=== PATIENT | female | born 1945 | race Asian ===

== ENCOUNTER 2018-11-29 14:32 | Emergency (ER) | payer OTHER, SELFPAY ==
[~2018-11-29] VITALS: Ht 147.3 cm; Wt 56.7 kg
[~2018-11-29 14:32] MED LIST: ALBUTEROL2.5 MG/0.5 INH; ALPRAZOLAM1 M1 PO; AMBIEN 10 MG TA10 MG PO; AMBIEN 5 MG TABL5 M1 PO; ASPIRIN EC81 M1 PO; DIFLUCAN150 MG PO; DOXYCYCLINE 10100 MG PO; DYAZIDE 37.5-21 EACH PO; FLONASE 0.05%50 MCG NASAL; FLONASE ALLERG9.9 ML NASAL; HYDROCODON-ACE1 EAC7 PO; IMDUR 30 MG TAB30 M1; KLOR-CON 1010 MEQ; MOBIC7.5 M1 PO; NEXIUM 40 MG CA40 M1 PO; NITROGLYCERIN0.4 MG SL; OMEPRAZOLE40 MG; PRAVACHOL40 MG; PREDNISONE 10 M10 M1 PO; PREMARIN0.625 MG PO; SERTRALINE HCL25 M2; TRICOR145 MG PO; ULTRAM 50MG TAB50 MG PO; VENTOLIN HFA 1818 GM; XANAX XR1 MG
[2018-11-29 15:16] LABS: ABSOLUTE BASOPHILS 0.1 thou/uL (0.0-0.2); ABSOLUTE EOSINOPHILS 0.2 thou/uL (0.0-0.7); ABSOLUTE LYMPHOCYTES 2.1 thou/uL (0.8-5.3); ABSOLUTE MONOCYTES 0.9 thou/uL (0.0-1.2); ABSOLUTE NEUTROPHILS 4.6 thou/uL (1.6-8.1); BASOPHILS 0.8 %; EOSINOPHILS 2.8 %; HEMATOCRIT 36.6 % (37.0-47.0); HEMOGLOBIN 12.7 gm/dL (12.0-15.0); LYMPHOCYTES 26.7 %; MCH 31.4 pg (26.0-34.0); MCHC 34.7 g/dL (28.0-37.0); MCV 90.3 fL (80.0-100.0); MONOCYTES 11.2 %; MPV 8.4 fl. (7.2-11.1); NUCLEATED RBCS 0 /100WBC; PLATELET COUNT* 237 thou/uL (150-400); POLYS 58.5 %; RBC 4.06 mil/uL (4.20-5.00); RDW-CV 13.8 % (10.5-14.5); WBC 7.9 thou/uL (4.0-11.0)
[2018-11-29 15:29] LABS: CALCIUM 8.7 mg/dL (8.5-10.1); CREATININE 0.9 mg/dL (0.6-1.3); POTASSIUM 3.6 mmol/L (3.5-5.1); TOTAL BILIRUBIN 0.3 mg/dL (<0.1-1.0); TOTAL PROTEIN 7.4 g/dL (6.4-8.2)
[2018-11-29 17:27] VITALS: BP 180/66
== END 2018-11-29 17:28 | disposition home or self-care (01) ==
LOC: M.ERS 14:32
PROVIDERS: Nurse Practitioner Family
DX: R42 Dizziness and giddiness (principal); T42.6X5A Adverse effect of other antiepileptic and sedative-hypnotic drugs, initial encounter; J45.909 Unspecified asthma, uncomplicated; E78.5 Hyperlipidemia, unspecified; M48.00 Spinal stenosis, site unspecified; F41.9 Anxiety disorder, unspecified; I10 Essential (primary) hypertension; G47.00 Insomnia, unspecified; K76.0 Fatty (change of) liver, not elsewhere classified; K21.9 Gastro-esophageal reflux disease without esophagitis; Z88.5 Allergy status to narcotic agent; Z88.1 Allergy status to other antibiotic agents; Z88.4 Allergy status to anesthetic agent; Z88.8 Allergy status to other drugs, medicaments and biological substances; Z88.2 Allergy status to sulfonamides; Y92.89 Other specified places as the place of occurrence of the external cause

== ENCOUNTER 2019-02-04 07:31 | Inpatient (IN) | payer OTHER, MEDICAID ==
[~2019-02-04] VITALS: Ht 147.3 cm; Wt 59.4 kg
[2019-02-04 07:36] VITALS: BP 214/105
[2019-02-04] MEDS ORDERED: LISINOPRIL20 MG PO (07:41)
[2019-02-04] MEDS ORDERED: XANAX 0.5 MG0.5 MG PO (07:42)
[2019-02-04] MEDS ORDERED: ATORVASTATIN CA40 MG PO (07:42)
[2019-02-04] MEDS ORDERED: INDERAL LA60 MG PO (07:42)
[2019-02-04] MEDS ORDERED: ESTRADIOL 1 MG T1 M1 (07:43)
[2019-02-04 08:59] LABS: ABSOLUTE LYMPHOCYTES 1.2 thou/uL (0.8-5.3); ABSOLUTE MONOCYTES 0.2 thou/uL (0.0-1.2); ABSOLUTE NEUTROPHILS 6.7 thou/uL (1.6-8.1); BASOPHILS 0.5 %; EOSINOPHILS 0.4 %; HEMATOCRIT 42.8 % (37.0-47.0); HEMOGLOBIN 14.4 gm/dL (12.0-15.0); LYMPHOCYTES 14.7 %; MCH 31.7 pg (26.0-34.0); MCHC 33.6 g/dL (28.0-37.0); MCV 94.4 fL (80.0-100.0); MONOCYTES 2.8 %; MPV 8.4 fl. (7.2-11.1); NUCLEATED RBCS 0 /100WBC; PLATELET COUNT* 303 thou/uL (150-400); POLYS 81.6 %; RBC 4.53 mil/uL (4.20-5.00); WBC 8.2 thou/uL (4.0-11.0)
[2019-02-04 09:13] LABS: ALBUMIN 4.2 g/dL (3.4-5.0); ALKALINE PHOSPHATASE 141 U/L (46-116); ANION GAP 9 mmol/L (7-16); BUN 12 mg/dL (7-18); CALCIUM 9.3 mg/dL (8.5-10.1); CHLORIDE 104 mmol/L (98-107); CO2 29 mmol/L (21-32); CREATININE 0.7 mg/dL (0.6-1.3); GLUCOSE 122 mg/dL (70-99); POTASSIUM 4.1 mmol/L (3.5-5.1); SGOT 25 U/L (15-37); SGPT 45 U/L (30-65); SODIUM 142 mmol/L (136-145); TOTAL BILIRUBIN 0.9 mg/dL (<0.1-1.0); TOTAL PROTEIN 8.4 g/dL (6.4-8.2); TROPONIN-I LEVEL <0.06 ng/mL (<0.06)
[2019-02-04 12:07] LABS: NT-PRO BRAIN NAT PEPTIDE 1161 pg/mL (<300); TROPONIN-I LEVEL <0.06 ng/mL (<0.06)
[2019-02-04 12:24] VITALS: BP 179/80
[2019-02-04 13:00] VITALS: BP 184/51
[2019-02-04 14:37] LABS: INR 0.9; PROTIME 9.7 Seconds (9.20-11.50)
[2019-02-04 15:23] VITALS: BP 187/61
[2019-02-04 15:36] LABS: ALBUMIN 3.9 g/dL (3.4-5.0); CALCIUM 9.2 mg/dL (8.5-10.1); CREATININE 0.7 mg/dL (0.6-1.3); POTASSIUM 3.8 mmol/L (3.5-5.1); TOTAL BILIRUBIN 0.8 mg/dL (<0.1-1.0); TOTAL PROTEIN 7.9 g/dL (6.4-8.2)
--- NOTE | 2019-02-04 17:09 | 2DMMODE ---
[place] [address] 2 D/M-MODE ECHOCARDIOGRAM Name: EUGENIO TOVAR Room: [address] IN [facility]#: [id number] Admission: 02/04/19 Attend Phys: Georges Brand, Discharge: Date of : 45 Date of Service: 02/04/19 1709 Report #: [id number] THIS REPORT FOR: //name// APPROVED REPORT Study performed: 02/04/2019 16:19:16 EXAM: Comprehensive 2D, Doppler, and color-flow Echocardiogram Patient Location: In-Patient Room #: [facility] Status: routine BSA: 1.43 HR: 80 bpm BP: 184/51 mmHg Rhythm: NSR Other Information Study Quality: Adequate Indications Dyspnea Pleural Effusion 2D Dimensions IVSd: 13.95 (7-11mm) LVOT Diam: 18.81 (18-24mm) LVDd: 35.20 mm PWd: 12.14 (7-11mm) Ascending Ao: 29.78 (22-36mm) LVDs: 19.01 (25-40mm) Aortic Root: 24.84 mm Volumes Left Atrial Volume (Systole) LA ESV Index: 41.30 mL/m2 Aortic Valve AoV Peak Imtiaz.: 1.38 m/s AO Peak Gr.: 7.63 mmHg LVOT Max P.26 mmHg AO Mean Gr.: 4.01 mmHg LVOT Mean P.25 mmHg LVOT Max V: 1.03 m/s AO V2 VTI: 26.77 cm LVOT Mean V: 0.70 m/s CM (VTI): 2.25 cm2 LVOT V1 VTI: 21.63 cm Mitral Valve MV Mean Gr.: 3.48 mmHg E/A Ratio: 1.03 MV Decel. Time: 215.01 [place] [address] 2 D/M-MODE ECHOCARDIOGRAM Name: EUGENIO TOVAR Room: [address] IN ..#: [id number] Admission: 02/04/19 Attend Phys: Georges Brand, Discharge: Date of : 45 Date of Service: 02/04/19 1709 Report #: [id number] MV E Max Imtiaz.: 1.23 m/s MV PHT: 62.35 ms MVA (PHT): 3.53 cm2 TDI E/Lateral E': 17.57 E/Medial E': 20.50 Medial E' Imtiaz.: 0.06 m/s Lateral E' Imtiaz.: 0.07 m/s Pulmonary Valve PV Peak Imtiaz.: 0.89 m/s PV Peak Gr.: 3.16 mmHg Left Ventricle The left ventricle is normal size. There is normal LV segmental wall motion. Mild concentric left ventricular hypertrophy. Left ventricular systolic function is normal. The left ventricular ejection fraction is within the normal range. LVEF is 60-65%. The left ventricular diastolic function is normal. Right Ventricle The right ventricle is normal size. The right ventricular systolic function is normal. Atria Left atrium is mild to moderately dilated. The right atrium size is normal. Aortic Valve The aortic valve is normal in structure. Trace aortic regurgitation. There is no aortic valvular stenosis. Mitral Valve Moderate mitral annular calcification. Trace mitral regurgitation. Mild mitral stenosis. Tricuspid Valve The tricuspid valve is normal in structure. Unable to assess PA pressure. Trace tricuspid regurgitation. Pulmonic Valve The pulmonary valve is normal in structure. There is no pulmonic valvular regurgitation. Great Vessels The aortic root is normal in size. IVC is normal in size and collapses >50% [place] [address] 2 D/M-MODE ECHOCARDIOGRAM Name: EUGENIO TOVAR Room: [address] IN [facility]#: [id number] Admission: 02/04/19 Attend Phys: Georges Brand, Discharge: Date of : 45 Date of Service: 02/04/19 1709 Report #: [id number] Pericardium There is no pericardial effusion. <Conclusion> Mild concentric left ventricular hypertrophy. LVEF is 60-65%. Left atrium is mild to moderately dilated. <ELECTRONICALLY SIGNED> By: Dino Weber MD, FACC 02/04/191708 08 08 Dino Weber MD, FACC /INF
[2019-02-04 17:38] LABS: BF RBC 1159 /mm3; TOTAL CELL COUNT 244 /mm3
[2019-02-04 17:39] LABS: CLARITY SLIGHTLY HAZY; TOTAL VOLUME 520 ml
[2019-02-04 17:40] LABS: SOURCE THORACENTESIS
[2019-02-04 17:45] VITALS: BP 163/71
--- NOTE | 2019-02-04 18:15 | NUR ---
PT TO UNIT THIS AFTERNOON. ALERT, ORIENTED AND ALL VSS ON ROOM AIR. DENIES CP, SOA. RIGHT THORA SITE CDI. EDUCATED ON SAFETY AND PLAN OF CARE. PLEASE SEE ASSESSMENT FOR ADDITIONAL INFORMATION. WILL CONT TO MONITOR
[2019-02-04 18:22] LABS: BF LYMPHOCYTES 59 %; BF MONOCYTES 31 %; BF POLYS 7 %; BF TISSUE 64 /100 WBC; BODY FLUID BANDS 3 %
[2019-02-04 19:30] VITALS: BP 144/57
[2019-02-05] VITALS (7 sets, daily range): BP systolic 124–157; BP diastolic 53–72
[2019-02-05 05:20] LABS: HEMATOCRIT 39.2 % (37.0-47.0); HEMOGLOBIN 13.2 gm/dL (12.0-15.0); MCH 31.5 pg (26.0-34.0); MCHC 33.7 g/dL (28.0-37.0); MCV 93.5 fL (80.0-100.0); MPV 9.3 fl. (7.2-11.1); NUCLEATED RBCS 0 /100WBC; PLATELET COUNT* 268 thou/uL (150-400); RBC 4.19 mil/uL (4.20-5.00); RDW-CV 13.9 % (10.5-14.5); WBC 11.7 thou/uL (4.0-11.0)
[2019-02-05 05:49] LABS: ALBUMIN 3.5 g/dL (3.4-5.0); CREATININE 0.7 mg/dL (0.6-1.3); POTASSIUM 3.8 mmol/L (3.5-5.1); TOTAL BILIRUBIN 0.4 mg/dL (<0.1-1.0); TOTAL PROTEIN 7.4 g/dL (6.4-8.2)
[2019-02-05 06:39] LABS: ABSOLUTE LYMPHOCYTES 1.5 thou/uL (0.8-5.3); ABSOLUTE MONOCYTES 0.2 thou/uL (0.0-1.2); ABSOLUTE NEUTROPHILS 9.9 thou/uL (1.6-8.1)
[2019-02-05 06:41] LABS: PLATELET ESTIMATE ADEQUATE
--- NOTE | 2019-02-05 06:57 | NUR ---
VITALS WNL. SEE MAR. SEE CHARTING. HOURLY ROUNDING FOR SAFETY.
--- NOTE | 2019-02-05 07:30 | NUR ---
ASSUMED CARE OF PT ASSESSED AND DOCUMENTED. PT IS ON CARDIAC MONITER TRACING SR HR 71. SHE IS A&O WITH NO C/O PAIN. VSS WNL. PT IS AFEBRILE. SHE IS ON ROOM AIR. PT HAS NOTED TREMERS IN HER R HAND. BED IS IN LOW POSITION CALL LIGHT IS IN REACH. WM.
--- NOTE | 2019-02-05 16:52 | NUR ---
PT HAS RESTED IN HER ROOM AND OCCASIONALLY WALKED IN THE HALLS. SHE HAS HAD NO S OR SX OF ADVERSE REACTION TO ABT. ORDER REQUESTED AND GIVEN FOR ATIVAN PER PTS REQUEST FOR HER ANXIETY. [employer] HAS BEEN AT BEDSIDE WELL HER BOTFRIEND. EDUCATION GIVEN ON DEMAND. HOURLY ROUNDING CONTINUES. TYLENOL 1 TAB 325 MG GIVEN FOR HEADACHE AND WAS EFFECTIVE.
[2019-02-06 04:00] VITALS: BP 118/47
--- NOTE | 2019-02-06 05:03 | NUR ---
PT SLEPT MOST OF SHIFT. ASSESSMENT DOCUMENTED. MEDS GIVEN PER E-MAR. IV PATENT. PT WALKED HALLS FIRST PART OF SHIFT. TYLENOL GIVEN PER E-MAR FOR RIGHT RIB PAIN. CONSTIPATION MEDS GIVEN PER E-MAR PER PT REQUEST. WILL CONTINUE WITH PLAN OF CARE.
[2019-02-06 05:07] LABS: ABSOLUTE LYMPHOCYTES 1.7 thou/uL (0.8-5.3); BASOPHILS 0.1 %; HEMATOCRIT 36.3 % (37.0-47.0); HEMOGLOBIN 12.1 gm/dL (12.0-15.0); LYMPHOCYTES 11.1 %; MCH 31.1 pg (26.0-34.0); MCHC 33.3 g/dL (28.0-37.0); MCV 93.4 fL (80.0-100.0); MONOCYTES 6.3 %; NUCLEATED RBCS 0 /100WBC; PLATELET COUNT* 262 thou/uL (150-400); POLYS 82.5 %; RBC 3.88 mil/uL (4.20-5.00); RDW-CV 14.2 % (10.5-14.5); WBC 15.8 thou/uL (4.0-11.0)
[2019-02-06 06:07] LABS: CALCIUM 8.6 mg/dL (8.5-10.1); CREATININE 0.7 mg/dL (0.6-1.3); POTASSIUM 3.7 mmol/L (3.5-5.1)
--- NOTE | 2019-02-06 07:15 | NUR ---
ASSUMED CARE OF PT ASSESSED AND DOCUMENTED. PT IS ON CARDIAC MONITER TRACING SR HR 70. SHE IS A&O WITH NO C/O PAIN. VSS WNL. PT IS AFEBRILE. BED IS IN LOW POSITION CALL LIGHT IS IN REACH. WM.
[2019-02-06 10:05] LABS: BODY FLUID AMYLASE 20 U/L (()); BODY FLUID LDH 64 IU/L (())
[2019-02-06] MEDS ORDERED: CARVEDILOL3.125 MG PO (11:55)
[2019-02-06 12:00] VITALS: BP 151/54
[2019-02-06] MEDS ORDERED: SPIRONOLACTONE25 M1 PO (12:01)
[2019-02-06] MEDS ORDERED: KEFLEX500 M1 PO (12:03)
[2019-02-06] MEDS ORDERED: LASIX 40 MG TAB40 M2 PO (12:04)
[2019-02-06] MEDS ORDERED: METHYLPREDNISOLO4 MG PO (12:08)
[2019-02-06 12:57] VITALS: BP 137/60
--- NOTE | 2019-02-06 13:47 | NUR ---
PT D/C'D TO HOME. ALL CONSULTS OK WITH D/C. EDUCATION GIVEN RE FOLLOW-UPS, MEDICATIONS, AND DRS ORDERS. SCRIPTS GIVEN. D/C'D IV AND CARDIAC MONITER. ALL BELONGINGS PACKED UP AND LEFT WITH PT ACCOMPANIED BY STAFF AND FRIEND FROM [employer].
--- NOTE | 2019-02-07 08:27 | CON ---
[address] [address] CONSULTATION Name: TOVAREUGENIO Room: [address] IN M.R.#: [id number] Admission: 02/04/19 Attend Phys: Georges Brand MD Discharge: 02/06/19 Date of : 45 Report #: [id number] THIS REPORT FOR: //name// CC: Georges Brand [facility] DATE OF SERVICE: 02/04/2019 REQUESTING PHYSICIAN: Georges Brand MD. REASON FOR CONSULTATION: Pleural effusions. DISCUSSION: The patient is a pleasant 74-year-old woman who presented to the Emergency Department with a fairly sudden onset of shortness of breath. She states she fell. She had an asthma attack. She notes she has a long history of asthma. She does have on an inhaler at home, though she cannot tell me the name of that. She has had some cough and congestion. She is expectorating sputum. She really cannot be specific as to the color of the mucus. However, she does deny having any hemoptysis. She notes she was feeling bad enough, she was seen in the ED. She felt very tight in her chest. She was wheezing. She was given some treatments and IV steroids in the Emergency Department. While she was there, imaging was done was followed up by a CT scan of her chest. It did reveal bilateral pleural effusions. She has been admitted. We were asked to see her. She is a lifelong nonsmoker. Other than the asthma, she denies any prior history of lung disease. She denies any history of TB. When asked different questions; however, she notes "I am fine." There is a bit of a language barrier as she is from [place] though she has been in this country for 48 years. She did have a fall about 3 weeks ago. She notes she tripped on a rug at her sister's. She points to her right flank areas where she had hit herself. The pain and discomfort are much better. She did have rib films done when she was in the ED and no definite fracture was noted. She has otherwise not had any recent falls. She does note she has had several hospitalizations at [facility] this spring. We do not have any of those records at this time. However, she notes they were for "electrolyte disturbances." Apparently, she had been drinking a lot of fluid at home. She believes she may have had chest films done. She was not told at that time if there were any significant issues with fluid collections. She denies any history of heart disease. She notes normally gets around without any shortness of breath. No chest pain, no palpitations. She did have a cardiac catheterization done in the past because of complaints of chest pain[place] [address] CONSULTATION Name: EUGENIO TOVAR RJ Room: [address] IN .R.#: [id number] Admission: 02/04/19 Attend Phys: Georges Brand MD Discharge: 02/06/19 Date of : 45 Report #: [id number] years ago. She had chest pain at that time, which was relieved with nitroglycerin. She was not noted to have any significant coronary artery disease at that time. It was thought she probably had coronary artery spasm and was to continue with some medication to help treat that. Systolic function was normal at that time. PAST MEDICAL HISTORY: Remarkable otherwise for back surgery, which she has had several of. She has also had breast implants. She has had colonoscopy done in the past. She denies any history of cancers. When I ask questions, she will frequently reply "I am fine." No thromboembolic disease. No history of TB or exposure to tuberculosis. Unknown if she was tested at the time that she arrived in [facility] from [facility]. She has no pets at home. 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 Does not have any difficulty swallowing. Denies indigestion or heartburn. HOME MEDICATIONS: At the time of admission have been lisinopril, propranolol, p.r.n. Xanax, atorvastatin, Estrace, Imdur, p.r.n. nitroglycerin and omeprazole. SOCIAL HISTORY: No pets at home, from [facility] originally. FAMILY HISTORY: She denies any history of lung disease or cancers or thromboembolic disease. REVIEW OF SYSTEMS: ROS was done. Note positives as above. She does note this spring when she had her "electrolyte disturbances," she was very unsteady. Did have some falls and that has improved. She is not having any edema. No difficulty swallowing. She does have an intention tremor particularly her right upper extremity. She is on propranolol for that. She notes that she used to see a "brain doctor" for that. PHYSICAL EXAMINATION: GENERAL APPEARANCE: A woman who looks stated age. She is alert, cooperative. She is in no acute distress. She is on room air. She is able to speak in full sentences. HEENT: Head is normocephalic. Sclerae nonicteric. Mucous membranes are moist. No thrush is noted. NECK: Negative for adenopathy. No JVD. No supraclavicular adenopathy. HEART: Regular, though mildly tachycardic. No S3 is heard. LUNGS: Reveal breath sounds were just mildly diminished. No wheezing is heard. Breath sounds more diminished in the bases. There is some dullness to percussion and decreased tactile fremitus. No CVA tenderness. I see no ecchymotic areas on her back or in her flank areas. No point tenderness is noted. ABDOMEN: Soft, without appreciable hepatosplenomegaly[place] [address] CONSULTATION Name: LAEUGENIO DE LA ROSA Room: [address] IN .R.#: [id number] Admission: 02/04/19 Attend Phys: Georges Brand MD Discharge: 02/06/19 Date of : 45 Report #: [id number] tenderness. EXTREMITIES: On her lower extremities, there is no edema, no calf tenderness is noted. No varicosities. SKIN: Warm and dry. NEUROLOGIC: She is alert and oriented x 3. LABORATORY AND X-RAY FINDINGS: We have no recent chest films available for comparison purposes. She did have a rib detail noted. There are no definite rib fractures, but there does appear that she has a pleural effusion. A CT scan done of her chest was negative for PE. She does have bilateral pleural effusions, right greater than left. No definite masses are noted. Does have some mild atelectatic changes seen. Does not appear to have any significant adenopathy. Spinal stimulator is noted. Chemistry: BUN is 12, creatinine of 0.7, potassium 3.8, bicarbonate 26. Transaminases normal, alkaline phosphatase 135. Total bilirubin is normal. ProBNP 1161. Lactic acid 0.9. White blood cell count 8200, hemoglobin 14.4, hematocrit 42.8, platelets are normal. Blood cultures were sent. IMPRESSION: 1. Bilateral pleural effusions, right greater than left. Etiology not clear. Could be related to trauma, though I would expect it to be unilateral rather than bilateral. Overall, does not appear to be overly thick fluid or have a density more consistent with a hemothorax. No definite rib fractures are noted. It could be related to the issues she was having with electrolyte disturbances this spring. Depending on fluid shifts, sodium levels, etc., might have been a factor. It is not clear whether or not she is euthyroid as well. Congestive heart failure is less likely given the fact her BNP is just minimally elevated. Occult malignancy is a possibility as well. 2. History of asthma. Not bronchospastic at the time of my exam. 3. Intention tremor. 4. History of hypertension. RECOMMENDATIONS: 1. Given the findings on her CAT scan, will see if IR can perform thoracentesis, particularly on the right side today. 2. Treat her asthma exacerbation. 3. Depending on how she does, hopefully can get discharged home in the next 1-2 days. 4. Also, discussed with her if IR is unable to tap her today, if she improves otherwise, could be discharged home and have the thoracentesis done as an outpatient. 5. Check a TSH. [address] [place] [address] CONSULTATION Name: EUGENIO TOVAR RJ Room: [address] IN M.R.#: [id number] Admission: 02/04/19 Attend Phys: Georges Brand MD Discharge: 02/06/19 Date of : 45 Report #: [id number] 6. We probably also need a followup echocardiogram done at some point. 7. Also check records from [facility]. <ELECTRONICALLY SIGNED> By: Maisha Willoughby MD 02/07/19 0827 1648 [id number] Willoughby MD /nt
--- NOTE | 2019-02-07 14:38 | CON ---
[address] [address] CONSULTATION Name: LAEUGENIO DE LA ROSA Room: [address] IN M.R.#: [id number] Admission: 02/04/19 Attend Phys: Georges Brand MD Discharge: 02/06/19 Date of : 45 Report #: [id number] THIS REPORT FOR: //name// CC: Georges Duran MD DATE OF SERVICE: 02/05/2019 TYPE OF REPORT: Cardiology consultation. HISTORY OF PRESENT ILLNESS: The patient is a 74-year-old [place] single female who I was asked to see in the hospital today after she complained of being short of breath. The history is obtained from the patient as well as some old records. She has no previous history of heart disease. Recently, she has felt short of breath. She states she has had asthma. She used an inhaler and it did seem to help. She actually had a cardiac catheterization by Dr. Maharaj back in 2015 when she presented with chest pain and abnormal nuclear stress test. Heart catheterization showed normal left ventricular function and minimal coronary artery disease with a 30% narrowing of the right coronary artery, 40% narrowing of the circumflex and a 40% narrowing of the LAD. She was felt to have possible spasm since she had chest pain relieved with nitroglycerin. Her nuclear stress test back in 2015 showed T-wave inversion and suggest ischemia in distal anterior apical wall. She denies any recent chest pain, palpitation, syncope, edema, fever or cough. Her neighbor brought her to the Emergency Room yesterday and she was admitted for further evaluation and treatment. PAST MEDICAL HISTORY: Significant for hysterectomy, back surgery, hypertension and hyperlipidemia. MEDICATIONS: Consist of omeprazole, Imdur, lisinopril, propranolol, Xanax, Lipitor and estradiol. ALLERGIES: She has a previous intolerance to CODEINE, SULFA and TETRACYCLINE. FAMILY HISTORY: Negative for heart disease. SOCIAL HISTORY: She is single, originally from [place]. She lives in [place]. 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 No smoking or alcohol abuse. REVIEW OF SYSTEMS: She has had no history of stroke, peptic ulcer disease, liver disease, kidney disease, cancer, psychiatric illness and chronic skin condition. PHYSICAL EXAMINATION: GENERAL: Revealed an elderly female lying in bed[place] [address] CONSULTATION Name: EUGENIO TOVAR Room: [address]#: [id number] Admission: 02/04/19 Attend Phys: Georges Brand MD Discharge: 02/06/19 Date of : 45 Report #: [id number] distress. VITAL SIGNS: She had a blood pressure of 130/60, pulse 80 and she is afebrile. HEENT: She is anicteric. Conjunctivae pink. Mucous members moist. NECK: Veins are nondistended. No carotid bruits. Neck supple. CHEST: Clear to auscultation. CARDIOVASCULAR: Regular rate and rhythm. ABDOMEN: Soft. EXTREMITIES: Had no edema. Dorsalis pedis pulse 2+ bilaterally. SKIN: Warm and dry. NEUROLOGICAL: Nonfocal. LYMPHATIC: No adenopathy. MUSCULOSKELETAL: No joint effusion. LABORATORY DATA: ECG on admission showed a sinus rhythm. Her workup included a CT scan of the chest using the PE protocol yesterday that showed no pulmonary embolus, some atelectasis, small effusion. She had an echocardiogram performed yesterday that showed left ventricular hypertrophy, ejection fraction 60%, left atrial enlargement. LABORATORY DATA: Lab work she had a thoracentesis yesterday 500 mL of martin-colored. Sodium 139, potassium 3.8 and creatinine 0.7. Liver function studies were normal. BNP 1810. White blood cell count 11.7 and hemoglobin 13.2. IMPRESSION AND RECOMMENDATIONS: 1. Acute diastolic heart failure. Recommend Lasix. 2. Hypertension. The patient has been on an angiotensin-converting enzyme inhibitor and beta mery. 3. Mild coronary artery disease. No significant angina. 4. Hyperlipidemia. The patient is on a statin drug. 5. History of asthma. <ELECTRONICALLY SIGNED> By: Dino Weber MD, [facility] 02/07/19 1438 1220 [id number] Weber MD, FAC /nt
[2019-02-08 08:53] LABS: SOURCE THORACENTESIS
--- NOTE | 2019-02-08 13:07 | PATH ---
[address] [address] PATHOLOGY RPT PROCEDURE Name: EUGENIO TOVAR Room: [address] IN ..#: [id number] Admission: 02/04/19 Date of : 45 Discharge: 02/06/19 Report #: [id number] Path Case #: [id number] Note [facility] Accession Number: [id number] TESTS RESULT FLAG UNITS REF RANGE LAB Clinician Provided Cytology Information No. of containers..01 Other (Miscellaneous) Source: RT PLEURAL FLUID DIAGNOSIS: RT PLEURAL FLUID NEGATIVE FOR MALIGNANT CELLS. FEW MESOTHELIAL CELLS AND INFLAMMATORY CELLS. THIS INTERPRETATION INCLUDES EVALUATION OF A CELL BLOCK. Signed out by: 02 Joreg Urrutia MD, Pathologist NPI- [id number] Performed by: 01 Mariann Archuleta, Field Sales Representative ([facility]) Gross description: 01 80ML, YELLOW, HAZY /LCS FLAG LEGEND: L-Low Normal,H-High Normal,LL-Alert Low,HH-Alert High <-Panic Low,>-Panic High,A-Abnormal,AA-Critical Abnormal Performed at: [address] [place] [address] Koby Xavier MD, [address] [place] [phone] Jorge Urrutia MD, Specimen Comment: A courtesy copy of this report has been sent to Specimen Comment: [phone], , . Specimen Comment: Report sent to ,DR TOUSSAINT / DR VEGA Performed at: [address], [place], [place] [id number] MD Koby Xavier MD Phone: [phone]
== END 2019-02-06 13:45 | disposition home or self-care (01) | DRG 177 ==
LOC: M.ERS 07:31 → M.TBA-ER 11:13 → M.2W 11:13
PROVIDERS: Internal Medicine; Internal Medicine Pulmonary Disease; Personal Emergency Response Attendant; Radiology Diagnostic Radiology; ADMIT Internal Medicine
PROC: 0W993ZZ Drainage of Right Pleural Cavity, Percutaneous Approach (ICD-10-PCS; principal; 2019-02-04)
DX: J15.6 Pneumonia due to other Gram-negative bacteria (principal); J80 Acute respiratory distress syndrome; I50.43 Acute on chronic combined systolic (congestive) and diastolic (congestive) heart failure; J45.21 Mild intermittent asthma with (acute) exacerbation; J91.8 Pleural effusion in other conditions classified elsewhere; I11.0 Hypertensive heart disease with heart failure; I25.10 Atherosclerotic heart disease of native coronary artery without angina pectoris; E11.9 Type 2 diabetes mellitus without complications; G25.0 Essential tremor; K21.9 Gastro-esophageal reflux disease without esophagitis; G47.00 Insomnia, unspecified; F41.9 Anxiety disorder, unspecified; E78.5 Hyperlipidemia, unspecified; Z88.5 Allergy status to narcotic agent; Z88.2 Allergy status to sulfonamides; Z88.8 Allergy status to other drugs, medicaments and biological substances; Z79.899 Other long term (current) drug therapy; Z90.710 Acquired absence of both cervix and uterus; Z88.1 Allergy status to other antibiotic agents

== ENCOUNTER 2019-02-22 14:39 | Emergency (ER) | payer OTHER, MEDICAID ==
[~2019-02-22] VITALS: Ht 144.8 cm; Wt 53.5 kg
[~2019-02-22 14:39] MED LIST changes: +ATORVASTATIN CA40 MG PO; +CARVEDILOL3.125 MG PO; +ESTRADIOL 1 MG T1 M1; +INDERAL LA60 MG PO; +KEFLEX500 M1 PO; +LASIX 40 MG TAB40 M2 PO; +LISINOPRIL20 MG PO; +METHYLPREDNISOLO4 MG PO; +SPIRONOLACTONE25 M1 PO; +XANAX 0.5 MG0.5 MG PO
[2019-02-22] MEDS ORDERED: EFFER-K 10 MEQ10 ME1 PO (14:48)
[2019-02-22] MEDS ORDERED: ASPIR 8181 MG PO (14:48)
[2019-02-22] MEDS ORDERED: SPIRONOLACTONE25 M1 PO (14:52)
[2019-02-22] MEDS ORDERED: AMBIEN 5 MG TABL5 M1 PO (14:52)
[2019-02-22 15:50] LABS: URINE BILIRUBIN NEGATIVE (Negative); URINE BLOOD NEGATIVE (Negative); URINE CLARITY CLEAR; URINE COLOR YELLOW; URINE GLUCOSE-RANDOM NEGATIVE (Negative); URINE KETONES NEGATIVE (Negative); URINE LEUKOCYTES-REFLEX NEGATIVE (Negative); URINE NITRITE-REFLEX NEGATIVE (Negative); URINE PROTEIN NEGATIVE (Negative); URINE SPECIFIC GRAVITY 1.025 (1.005-1.030); URINE UROBILINOGEN 0.2 E.U./dl (0.2-1.0)
[2019-02-22 16:08] LABS: ABSOLUTE BASOPHILS 0.1 thou/uL (0.0-0.2); ABSOLUTE LYMPHOCYTES 2.2 thou/uL (0.8-5.3); ABSOLUTE MONOCYTES 0.6 thou/uL (0.0-1.2); ABSOLUTE NEUTROPHILS 8.3 thou/uL (1.6-8.1); BASOPHILS 0.8 %; HEMATOCRIT 40.6 % (37.0-47.0); HEMOGLOBIN 13.6 gm/dL (12.0-15.0); LYMPHOCYTES 19.3 %; MCH 31.7 pg (26.0-34.0); MCHC 33.6 g/dL (28.0-37.0); MCV 94.4 fL (80.0-100.0); MONOCYTES 5.4 %; MPV 8.7 fl. (7.2-11.1); NUCLEATED RBCS 0 /100WBC; PLATELET COUNT* 241 thou/uL (150-400); POLYS 74.5 %; RBC 4.31 mil/uL (4.20-5.00); RDW-CV 13.6 % (10.5-14.5); WBC 11.2 thou/uL (4.0-11.0)
[2019-02-22 16:17] LABS: ANION GAP 8 mmol/L (7-16); BUN 29 mg/dL (7-18); CALCIUM 9.1 mg/dL (8.5-10.1); CHLORIDE 102 mmol/L (98-107); CO2 30 mmol/L (21-32); CREATININE 0.8 mg/dL (0.6-1.3); GLUCOSE 132 mg/dL (70-99); POTASSIUM 4.4 mmol/L (3.5-5.1); SODIUM 140 mmol/L (136-145)
[2019-02-22 16:28] LABS: ALBUMIN 3.9 g/dL (3.4-5.0); ALKALINE PHOSPHATASE 98 U/L (46-116); NT-PRO BRAIN NAT PEPTIDE 663 pg/mL (<300); SGOT 19 U/L (15-37); SGPT 32 U/L (30-65); TOTAL BILIRUBIN 0.5 mg/dL (<0.1-1.0); TOTAL PROTEIN 7.2 g/dL (6.4-8.2); TROPONIN-I LEVEL <0.06 ng/mL (<0.06)
[2019-02-22 17:26] VITALS: BP 189/76
--- NOTE | 2019-02-23 13:16 | EKG ---
[place] [address] ELECTROCARDIOGRAM REPORT Name: EUGENIO TOVAR Room: [facility]#: [id number] Admission: 02/22/19 Attend Phys: Discharge: 02/22/19 Date of : 45 Report #: [id number] THIS REPORT FOR: //name// [facility] ED Test Date: 2019-02-22 Test Time: 14:46:16 Pat Name: EUGENIO TOVAR Department: Room: Gender: F Publication Designer: BETH : 1945 Requested By: Davina Adams Order Number: [id number] Juan MD: Prabhakar Durand Measurements Intervals [place] Rate: 84 P: DC: QRS: 38 QRSD: 79 T: QT: 350 QTc: 414 Interpretive Statements Sinus rhythm Consider left ventricular hypertrophy Abnrm T, consider ischemia, anterolateral lds Artifact in lead(s) I,II,III,aVR,aVL,aVF Compared to ECG 06/17/2016 09:10:41 Possible ischemia now present Electronically Signed On 02-23-2019 13:16:41 CDT by Prabhakar Durand [email or web address] <ELECTRONICALLY SIGNED> By: Prabhakar Durand MD, [facility] 02/23/19 1316 1446 1446 Prabhakar Durand MD, [facility] /EPI
== END 2019-02-22 17:27 | disposition home or self-care (01) ==
LOC: M.ERS 14:39
PROVIDERS: Personal Emergency Response Attendant
DX: R06.00 Dyspnea, unspecified (principal); R06.02 Shortness of breath; J45.909 Unspecified asthma, uncomplicated; E78.5 Hyperlipidemia, unspecified; F41.1 Generalized anxiety disorder; I10 Essential (primary) hypertension; K21.9 Gastro-esophageal reflux disease without esophagitis; G47.00 Insomnia, unspecified; Z88.2 Allergy status to sulfonamides; Z88.1 Allergy status to other antibiotic agents; Z88.5 Allergy status to narcotic agent; Z88.8 Allergy status to other drugs, medicaments and biological substances

== ENCOUNTER 2019-03-18 17:38 | Emergency (ER) | payer OTHER, MEDICAID ==
[~2019-03-18] VITALS: Ht 147.3 cm; Wt 49.9 kg
[~2019-03-18 17:38] MED LIST changes: +ASPIR 8181 MG PO; +EFFER-K 10 MEQ10 ME1 PO
[2019-03-18] MEDS ORDERED: LOMOTIL TABLET1 EACH PO (17:56)
[2019-03-18] MEDS ORDERED: ACETAMINOPHEN-1 EAC1 PO (17:56)
[2019-03-18] MEDS ORDERED: AZITHROMYCIN 2250 MG PO (17:56)
[2019-03-18 17:57] LABS: URINE BILIRUBIN NEGATIVE (Negative); URINE BLOOD NEGATIVE (Negative); URINE CLARITY CLEAR; URINE COLOR YELLOW; URINE GLUCOSE-RANDOM NEGATIVE (Negative); URINE KETONES NEGATIVE (Negative); URINE LEUKOCYTES-REFLEX NEGATIVE (Negative); URINE NITRITE-REFLEX NEGATIVE (Negative); URINE PROTEIN NEGATIVE (Negative); URINE UROBILINOGEN 0.2 E.U./dl (0.2-1.0)
[2019-03-18 19:01] LABS: ABSOLUTE LYMPHOCYTES 2.2 thou/uL (0.8-5.3); ABSOLUTE NEUTROPHILS 4.7 thou/uL (1.6-8.1); BASOPHILS 0.3 %; EOSINOPHILS 0.6 %; HEMATOCRIT 38.2 % (37.0-47.0); HEMOGLOBIN 13.1 gm/dL (12.0-15.0); LYMPHOCYTES 27.4 %; MCH 31.9 pg (26.0-34.0); MCHC 34.4 g/dL (28.0-37.0); MONOCYTES 12.1 %; MPV 8.7 fl. (7.2-11.1); NUCLEATED RBCS 0 /100WBC; PLATELET COUNT* 266 thou/uL (150-400); POLYS 59.6 %; RBC 4.11 mil/uL (4.20-5.00); RDW-CV 13.7 % (10.5-14.5); WBC 7.9 thou/uL (4.0-11.0)
[2019-03-18 19:03] LABS: CALCIUM 9.4 mg/dL (8.5-10.1); CREATININE 0.6 mg/dL (0.6-1.3); POTASSIUM 3.2 mmol/L (3.5-5.1)
[2019-03-18 19:08] LABS: ALBUMIN 3.8 g/dL (3.4-5.0); TOTAL BILIRUBIN 0.5 mg/dL (<0.1-1.0); TOTAL PROTEIN 7.2 g/dL (6.4-8.2)
[2019-03-18] MEDS ORDERED: MACROBID 100 M100 M3 PO (19:14)
[2019-03-18 19:42] VITALS: BP 136/68
== END 2019-03-18 19:44 | disposition home or self-care (01) ==
LOC: M.ERS 17:38
PROVIDERS: Nurse Practitioner
DX: J20.8 Acute bronchitis due to other specified organisms (principal); B97.89 Other viral agents as the cause of diseases classified elsewhere; R30.0 Dysuria; J45.909 Unspecified asthma, uncomplicated; E78.5 Hyperlipidemia, unspecified; M48.00 Spinal stenosis, site unspecified; F41.9 Anxiety disorder, unspecified; I10 Essential (primary) hypertension; G47.00 Insomnia, unspecified; K76.0 Fatty (change of) liver, not elsewhere classified; K21.9 Gastro-esophageal reflux disease without esophagitis; Z88.5 Allergy status to narcotic agent; Z88.1 Allergy status to other antibiotic agents; Z88.4 Allergy status to anesthetic agent; Z88.2 Allergy status to sulfonamides; Z88.8 Allergy status to other drugs, medicaments and biological substances

== ENCOUNTER → 2020-01-03 | Outpatient (CLI) | payer MEDICARE, MEDICAID ==
[~2020-01-03] MED LIST changes: +ACETAMINOPHEN-1 EAC1 PO; +AZITHROMYCIN 2250 MG PO; +FUROSEMIDE 40 M40 MG PO; +GABAPENTIN100 MG PO; +LOMOTIL TABLET1 EACH PO; +MACROBID 100 M100 M3 PO; +MEDROLDOSEPACK PO; +OXYCODONE HCL5 M1 PO; +PERCOCET 7.5-31 EACH PO
--- NOTE | ~2020-01-03 | PAINCON ---
[address] [address] PAIN MANAGEMENT CONSULTATION Name: EUGENIO TOVAR [facility] [id number] Admission: 01/03/20 Attend Phys: Lauro Smith MD Discharge: Date of : 45 Report #: [id number] THIS REPORT FOR: //name// cc: Quita Duran MD, Ghazal A. MD ~ THIS REPORT FOR: //name// CC: Quita Smith DATE OF SERVICE: 01/03/2020 CHIEF COMPLAINT: Pain that runs down the neck, shoulder and into the hands. HISTORY: The patient is a 74-year-old female who has been referred to the pain clinic. The patient states that she has pain in her neck. It is running down into her arm. It has been problematic for about 3 years. It has waxed and waned. Pain is worse when she is rotating her shoulder or reaching up. She is having some difficulty sleeping. She describes it as constant, burning, shooting, aching, sharp, stabbing pain. She rates it as a 6/10. She states that she would like to have an injection in the neck area. She does have a spinal cord stimulator in place. She is unable to undergo an MRI. ALLERGIES: CODEINE CAUSES NAUSEA AND VOMITING, AZITHROMYCIN, CETACAINE, BUTAMBEN, SULFA, TETRACAINE, ZOLOFT. MEDICATIONS: Xanax 0.5 mg b.i.d., Lipitor 40 mg, Coreg 3.125 mg b.i.d., Estrace 1 mg, Lasix 20 mg daily, gabapentin 100 mg b.i.d., lisinopril 20 mg, potassium 10 mEq. PAST MEDICAL HISTORY: Asthma, diabetes, dyslipidemia, spinal stenosis, Parkinson's disease, anxiety, hypertension, insomnia, fatty liver disease, GERD, congestive heart failure, essential tremor, diastolic dysfunction, migraine headaches, coronary artery disease. PAST SURGICAL HISTORY: Spinal cord stimulator placement, facial laceration repair, hysterectomy, back surgery, appendectomy in 2010, tonsillectomy in the past, tummy tuck, breast implants. 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 REVIEW OF SYSTEMS: As per HPI. PAIN CLINIC ASSESSMENT AND PQRS: 1. The patient is not being treated for osteoarthritis [place] [address] PAIN MANAGEMENT CONSULTATION Name: EUGENIO TOVAR Room: [facility]#: [id number] Admission: 01/03/20 Attend Phys: Lauro Smith MD Discharge: Date of : 45 Report #: [id number] 2. Height 4 feet 10 inches, weight 119 pounds, BMI is 24.9. 3. Vital Signs: Blood pressure 157/69, heart rate 70, respiratory rate 16, room air saturation 96%, temperature is 98.0. 4. Pain intensity 6/10. 5. Fall history: The patient has not fallen in the last 3 months. 6. Blood thinner. The patient is not on a blood thinning medication. 7. Hypertension. The patient is being treated for hypertension. 8. Opioids greater than 6 weeks. The patient is not on an opioid regimen. 9. Risk assessment tool, low for opioid use. 10. Functional assessment tool 36/70. 11. Recreational drug use: The patient denies. 12. Tobacco: The patient denies. PHYSICAL EXAMINATION: GENERAL: The patient is a well-developed, well-nourished female. Appears her stated age. She is alert and oriented x 3. Her affect is appropriate, somewhat unexpressive secondary to her Parkinson's disease. NECK: Without adenopathy. The patient has limited range of motion of flexion, extension, left and right lateral bending, left and right lateral rotation. Her right arm continues to move and finger movements in her hands and up and down movement consistent with that seen in Parkinson's. The patient has pain radiating down in her right arm, right shoulder and into the hand with complaints of pain and discomfort. ABDOMEN: Nontender. EXTREMITIES: Upper extremity muscle strength judged to be 4+/5 on the right side and 5- on the left. Lower extremity muscle strength 5-/5 for the major muscle groups in the lower extremity. IMPRESSION: 1. Cervical radiculopathy with pain radiating down into the arm. 2. Congestive heart failure. 3. Essential tremor. 4. Asthma. 5. Diastolic dysfunction. 6. Migraine headaches. 7. Coronary artery disease. 8. Hypertension. 9. Hyperlipidemia. 10. Fatty liver. 11. Gastroesophageal reflux disease. RECOMMENDATIONS: We discussed treatment options with the patient. At this juncture, we will have the patient try a conservative approach. The patient will be provided with gabapentin 100 mg b.i.d., she will continue with that medication. She will also use Medrol Dosepak. She will take it as directed. The patient will also try hydrocodone. A script for hydrocodone 5 mg [place] [address] PAIN MANAGEMENT CONSULTATION Name: EUGENIO TOVAR Room: [facility].#: [id number] Admission: 01/03/20 Attend Phys: Lauro Smith MD Discharge: Date of : 45 Report #: [id number] t.i.d. has been provided. Possibility of a cervical injection has been discussed. We may have the patient undergo a CT of her neck in order to gain more information about the anatomy. We would like to thank you for letting us participate in her care. We hope she continues to improve. By: [id number]. Srinivasa Smith MD /jaelyn
== END ==
LOC: M.PC 09:20
DX: M54.12 Radiculopathy, cervical region (principal); I50.9 Heart failure, unspecified; G25.0 Essential tremor; J45.909 Unspecified asthma, uncomplicated; I51.89 Other ill-defined heart diseases; G43.919 Migraine, unspecified, intractable, without status migrainosus; I25.10 Atherosclerotic heart disease of native coronary artery without angina pectoris; I10 Essential (primary) hypertension; E78.5 Hyperlipidemia, unspecified; K76.0 Fatty (change of) liver, not elsewhere classified; K21.9 Gastro-esophageal reflux disease without esophagitis; Z79.84 Long term (current) use of oral hypoglycemic drugs; Z79.899 Other long term (current) drug therapy; Z88.5 Allergy status to narcotic agent; Z88.2 Allergy status to sulfonamides; Z88.8 Allergy status to other drugs, medicaments and biological substances; Z91.048 Other nonmedicinal substance allergy status

== ENCOUNTER → 2020-01-17 | Outpatient (CLI) | payer MEDICARE, MEDICAID | LOC: M.CT 10:58 | DX: M50.021 Cervical disc disorder at C4-C5 level with myelopathy (principal); M50.121 Cervical disc disorder at C4-C5 level with radiculopathy; M48.02 Spinal stenosis, cervical region; M47.22 Other spondylosis with radiculopathy, cervical region; M25.78 Osteophyte, vertebrae ==

== ENCOUNTER → 2020-02-14 | Outpatient (CLI) | payer MEDICARE, MEDICAID | END | disposition home or self-care (01) | LOC: M.PC 05:15 | DX: M54.12 Radiculopathy, cervical region (principal); G89.29 Other chronic pain ==

== ENCOUNTER 2020-03-29 23:41 | Emergency (ER) | payer MEDICARE, MEDICAID ==
[~2020-03-29] VITALS: Ht 139.7 cm; Wt 52.6 kg
--- NOTE | ~2020-03-29 | EKG ---
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
[2020-03-30 01:09] LABS: ABSOLUTE LYMPHOCYTES 2.3 thou/uL (0.8-5.3); ABSOLUTE MONOCYTES 0.8 thou/uL (0.0-1.2); ABSOLUTE NEUTROPHILS 5.2 thou/uL (1.6-8.1); BASOPHILS 0.1 %; EOSINOPHILS 0.2 %; HEMOGLOBIN 13.7 gm/dL (12.0-15.0); LYMPHOCYTES 27.2 %; MCHC 35.2 g/dL (28.0-37.0); MCV 96.5 fL (80.0-100.0); MONOCYTES 9.5 %; MPV 7.7 fl. (7.2-11.1); NUCLEATED RBCS 0 /100WBC; PLATELET COUNT* 288 thou/uL (150-400); RBC 4.05 mil/uL (4.20-5.00); RDW-CV 12.7 % (10.5-14.5); WBC 8.3 thou/uL (4.0-11.0)
[2020-03-30 01:13] LABS: CALCIUM 8.8 mg/dL (8.5-10.1); CREATININE 0.8 mg/dL (0.6-1.3); POTASSIUM 3.3 mmol/L (3.5-5.1)
[2020-03-30 01:16] LABS: APTT 28.3 Seconds (25.0-31.3); PROTIME 10.1 Seconds (9.20-11.50)
[2020-03-30 01:28] LABS: ALBUMIN 4.1 g/dL (3.4-5.0); TOTAL BILIRUBIN 0.6 mg/dL (<0.1-1.0); TOTAL PROTEIN 7.5 g/dL (6.4-8.2)
[2020-03-30 02:52] VITALS: BP 121/43
--- NOTE | 2020-03-30 15:39 | EKG ---
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1945 Requested By: Davina Adams Order Number: [id number] MD: Prabhakar Durand Measurements Intervals [place] Rate: 89 P: 37 [place]: 25 QRS: 43 QRSD: 95 T: 120 QT: 375 QTc: 457 Interpretive Statements Sinus rhythm Probable LVH with secondary repol abnrm Compared to ECG 02/22/2019 14:46:16 Possible ischemia no longer present Electronically Signed On 03-30-2020 15:38:32 CDT by Prabhakar Durand [email or web address] <ELECTRONICALLY SIGNED> By: Prabhakar Durand MD, [facility] 03/30/20 1538 2346 2346 Prabhakar Durand MD, [facility] /EPI
== END 2020-03-30 02:53 | disposition home or self-care (01) ==
LOC: M.ERS 23:41
PROVIDERS: Personal Emergency Response Attendant
DX: R07.89 Other chest pain (principal); K21.9 Gastro-esophageal reflux disease without esophagitis; I10 Essential (primary) hypertension; J45.909 Unspecified asthma, uncomplicated; E78.5 Hyperlipidemia, unspecified; Z88.5 Allergy status to narcotic agent; Z88.1 Allergy status to other antibiotic agents; Z88.2 Allergy status to sulfonamides; Z88.8 Allergy status to other drugs, medicaments and biological substances; Z79.899 Other long term (current) drug therapy

== ENCOUNTER → 2020-05-01 | Outpatient (CLI) | payer MEDICARE, MEDICAID ==
--- NOTE | 2020-05-02 09:00 | PAINCON ---
[address] [address] PAIN MANAGEMENT CONSULTATION Name: EUGENIO TOVAR Room: [facility] Miya.Trent.#: [id number] Admission: 05/01/20 Attend Phys: Lauro Smith MD Discharge: Date of : 45 Report #: [id number] THIS REPORT FOR: //name// cc: ADENIKE - [place] family physician/PCP Quita Duran MD ~ THIS REPORT FOR: //name// CC: ADENIKE physician/PCP Quita Smith DATE OF SERVICE: 05/01/2020 CHIEF COMPLAINT: Return of neck pain down in the right neck, shoulder, and arm. HISTORY: The patient is a 75-year-old female who has been seen in the Pain Clinic because of cervical radiculopathy. She underwent a cervical epidural steroid injection in February. She noticed improvement in her pain and discomfort. She felt that she had greater than 50% improvement with the injection. At this juncture, she has noticed a recurrence of pain and discomfort. It involves her right neck, shoulder, arm and forearm. She rates it as a 6-7 with activity. She has had no complication from the injection. She notes increased pain and discomfort with looking up and moving her neck. Bending is problematic. She does have a spinal cord stimulator in the lower portion of her back. ALLERGIES: CODEINE CAUSES NAUSEA AND VOMITING. AZITHROMYCIN, CETACAINE, ZOLOFT, TETRACAINE, SULFA, AND BUTAMBEN FROM CETACAINE. CURRENT MEDICATIONS: Xanax 0.5 mg b.i.d., Lipitor 40 mg, Coreg 3.125 mg b.i.d., Estrace 1 mg, Lasix 20 mg, gabapentin 100 mg b.i.d., lisinopril 20 mg, and potassium 10 mEq. PAIN CLINIC ASSESSMENT AND PQRS: 1. The patient is not being treated for osteoarthritis or rheumatoid arthritis. 2. Height 4 feet 10 inches, weight 110 pounds, BMI is 32.2. 3. Vital signs: Blood pressure 154/82, heart rate 75, respiratory rate 16, and room air saturation 98%. 4. Pain intensity is 6-7/10. 5. Temperature 98.4. 6. Fall history: The patient has not fallen in the last 3 months. 7. Blood thinner. The patient is not on a blood thinning medication. 8. Hypertension. The patient is being treated for hypertension. 9. Opioids greater than 6 weeks. The patient is not being treated with opioids. 10. Risk assessment tool, low for opioid use. 11. Functional assessment tool 36/70. [address] [place] [address] PAIN MANAGEMENT CONSULTATION Name: LAEUGENIO DE LA ROSA Room: [facility]#: [id number] Admission: 05/01/20 Attend Phys: Lauro Smith MD Discharge: Date of : 45 Report #: [id number] 12. Recreational drug use. The patient denies. 13. Tobacco: The patient denies. 14. Alcohol: The patient denies. PHYSICAL EXAMINATION: GENERAL: The patient is a well-developed, well-nourished somewhat young appearing 75-year-old who is exhibiting some symptoms consistent with Parkinson's disease. She has an unexpressive face. NECK: Without adenopathy or JVD. MUSCULOSKELETAL: The patient has some pain and discomfort with pain that is radiating down the left neck, right shoulder, right forearm and down into her hands. Notes some sensory changes. Has movement in her right hand consistent with Parkinson's disease. ABDOMEN: Nontender. LUNGS: Clear to auscultation. EXTREMITIES: Upper extremity muscle strength judged to be 4+/5 for the major muscle groups in the upper extremity. Lower extremity muscle strength 5-/5. The patient has a somewhat labored gait consistent with Parkinson's movement. IMPRESSION: 1. Cervical radicular pain radiating down into the right arm. 2. History of congestive heart failure. 3. Essential tremors. 4. Asthma. 5. Diastolic dysfunction. 6. Migraine headaches. 7. Coronary artery disease. 8. Hypertension. 9. Hyperlipidemia. 10. Fatty liver. 11. Gastroesophageal reflux. RECOMMENDATIONS: We discussed treatment options with the patient. The patient received greater than 50% improvement in the neck after the last cervical epidural steroid injection. She tolerated it well. She is able to engage in activities for many weeks before she has noted some recurrence of her pain and discomfort. She has returned today with hopes of undergoing another cervical epidural steroid injection and gleaning more improvement. She has some difficulty with activities of daily living because of the pain. Bending, looking up and other activities of daily living are problematic because of her pain. We have discussed the problems with NANCY-19. She is aware that use of steroids can decrease one's immune system. She feels that the pain is still problematic enough that she would like to proceed with an injection. We will have the patient return to the Pain Clinic after she has been given certification by her insurance carrier. She would then undergo another cervical epidural steroid injection to help decrease the pain and discomfort she is [address] [address] PAIN MANAGEMENT CONSULTATION Name: EUGENIO TOVAR [facility] [id number] Admission: 05/01/20 Attend Phys: Lauro Smith MD Discharge: Date of : 45 Report #: [id number] experiencing. We would like to thank you for letting us participate in her care. We hope she continues to improve. <ELECTRONICALLY SIGNED> By: Lauro Smith MD 05/02/20 0900 0949 [id number]. Srinivasa Smith MD /nt
== END ==
LOC: M.PC 05:09
PROVIDERS: ATTEND Anesthesiology Pain Medicine
DX: M54.12 Radiculopathy, cervical region (principal); M25.511 Pain in right shoulder; M79.601 Pain in right arm; G25.0 Essential tremor; J45.909 Unspecified asthma, uncomplicated; I50.30 Unspecified diastolic (congestive) heart failure; I25.10 Atherosclerotic heart disease of native coronary artery without angina pectoris; I10 Essential (primary) hypertension; E78.5 Hyperlipidemia, unspecified; K76.0 Fatty (change of) liver, not elsewhere classified; K21.9 Gastro-esophageal reflux disease without esophagitis; Z88.8 Allergy status to other drugs, medicaments and biological substances; Z79.899 Other long term (current) drug therapy; Z86.79 Personal history of other diseases of the circulatory system

== ENCOUNTER → 2020-05-10 | Outpatient (CLI) | payer MEDICARE, MEDICAID | END | disposition home or self-care (01) | LOC: M.PC 02:19 | PROVIDERS: ATTEND Anesthesiology Pain Medicine | DX: M54.12 Radiculopathy, cervical region (principal); G89.29 Other chronic pain; I10 Essential (primary) hypertension; E11.9 Type 2 diabetes mellitus without complications; E78.5 Hyperlipidemia, unspecified; J45.909 Unspecified asthma, uncomplicated; F41.9 Anxiety disorder, unspecified; K21.9 Gastro-esophageal reflux disease without esophagitis; Z98.890 Other specified postprocedural states; Z79.899 Other long term (current) drug therapy; Z88.2 Allergy status to sulfonamides ==

== ENCOUNTER → 2020-05-31 | Outpatient (CLI) | payer MEDICARE, MEDICAID ==
--- NOTE | 2020-06-14 10:21 | PAINCON ---
[address] [address] PAIN MANAGEMENT CONSULTATION Name: EUGENIO TOVAR Room: [facility] M.Trent.#: [id number] Admission: 05/31/20 Attend Phys: Lauro Smith MD Discharge: Date of : 45 Report #: [id number] THIS REPORT FOR: //name// cc: Quita Duran MD, Ghazal A. MD ~ THIS REPORT FOR: //name// CC: Quita Smith DATE OF SERVICE: 05/31/2020 CHIEF COMPLAINT: Neck pain. HISTORY: The patient is a 75-year-old female who has been seen in the Pain Clinic because of cervical radiculopathy. She has undergone epidural steroid injections and found them beneficial. She continues to have pain, which is still problematic. She states that she is going to undergo a myelogram for further evaluation. She would like to return to the Pain Clinic after the myelogram with the desire to undergo another cervical epidural steroid injection, which will provide at least 50% improvement in her pain. She has pain in her neck and notes that there is pain that radiates down into her right arm. Notes that the pain is worse with activity involving her right arm. Looking up is problematic. Bending, activities and cold temperatures are all exacerbate her discomfort. ALLERGIES: CODEINE CAUSES NAUSEA AND VOMITING, AZITHROMYCIN, CETACAINE, ZOLOFT, TETRACAINE, SULFA CURRENT MEDICATIONS: Xanax 0.5 mg b.i.d., Lipitor 40 mg, Coreg 3.125 mg b.i.d., Estrace 1 mg, Lasix 20 mg, gabapentin 100 mg b.i.d., lisinopril 20 mg, and potassium 10 mEq. PAIN CLINIC ASSESSMENT AND PQRS: 1. The patient is not being treated for osteoarthritis or rheumatoid arthritis. 2. Height 4 feet 10 inches, weight 113 pounds, BMI is 23. 3. Vital signs: Blood pressure 177/90, heart rate 76, respiratory rate 18, room air saturation 97%, and temperature 97.7. 2. Pain intensity 10. 3. Fall history: The patient has not fallen in the last 3 months. 4. Blood thinner. The patient is not on a blood thinning medication. 5. Hypertension. The patient is being treated for hypertension. 6. Opioids greater than 6 weeks. The patient is not being treated with opioids. 7. Risk assessment tool, low for opioid use. 8. Functional assessment tool, . [place] [address] PAIN MANAGEMENT CONSULTATION Name: EUGENIO TOVAR Room: [facility]#: [id number] Admission: 05/31/20 Attend Phys: Lauro Smith MD Discharge: Date of : 45 Report #: [id number] 9. Recreational drug use. The patient denies. 10. Tobacco: The patient denies. 11. Alcohol. The patient denies use of alcoholic beverages. PHYSICAL EXAMINATION: GENERAL: The patient is a well-developed, well-nourished younger than her stated age. female. She is exhibiting symptoms consistent with Parkinson's disease. Her face is somewhat unexpressive. NECK: Without adenopathy or JVD. HEART: Regular rate. ABDOMEN: Nontender. LUNGS: Clear. EXTREMITIES: Upper extremity muscle strength judged to be 5- on the left and 4+ on the right with pain in the right shoulder and pain radiating down into the right forearm. The patient carries her arm in a somewhat guarded fashion. Slight movement in her hands consistent with the 6-7 Hz of Parkinson's disease. Lower extremity muscle strength judged to be 5-/5 for the major muscle groups in the lower extremity. IMPRESSION: 1. Cervical radiculopathy with pain radiating down into the right arm. 2. History of congestive heart failure. 3. Essential tremors. 4. Asthma. 5. Diastolic dysfunction. 6. Migraine headaches. 7. Coronary artery disease. 8. Hypertension. 9. Hyperlipidemia. 10. Fatty liver. 11. Gastroesophageal reflux. RECOMMENDATIONS: We discussed treatment options with the patient and her . Risks and benefits of an epidural steroid injection again were discussed. The patient is scheduled to undergo a myelogram in the near future. The patient will undergo a myelogram and after this procedure, will return to the Pain Clinic for a second cervical epidural steroid injection. We would like to thank you for letting us participate in her care. We hope she continues to improve. <ELECTRONICALLY SIGNED> By: Lauro Smith MD 06/14/20 1021 1653 0526N. Srinivasa Smith MD /jaelyn
== END ==
LOC: M.PC 09:01
PROVIDERS: ATTEND Anesthesiology Pain Medicine
DX: M54.12 Radiculopathy, cervical region (principal); M79.601 Pain in right arm; I11.0 Hypertensive heart disease with heart failure; I50.9 Heart failure, unspecified; J45.909 Unspecified asthma, uncomplicated; G43.909 Migraine, unspecified, not intractable, without status migrainosus; E78.5 Hyperlipidemia, unspecified; K21.9 Gastro-esophageal reflux disease without esophagitis; K76.0 Fatty (change of) liver, not elsewhere classified; I25.10 Atherosclerotic heart disease of native coronary artery without angina pectoris; R25.1 Tremor, unspecified

== ENCOUNTER → 2020-06-21 | Outpatient (CLI) | payer MEDICARE, MEDICAID ==
--- NOTE | 2020-07-03 13:31 | PAINCON ---
[address] [address] PAIN MANAGEMENT CONSULTATION Name: EUGENIO TOVAR Room: [facility]..#: [id number] Admission: 06/21/20 Attend Phys: Lauro Smith MD Discharge: Date of : 45 Report #: [id number] THIS REPORT FOR: //name// cc: Quita Duran MD, Ghazal A. MD ~ THIS REPORT FOR: //name// CC: Quita Smith DATE OF SERVICE: 07/02/2020 CHIEF COMPLAINT: Neck pain and arm pain. HISTORY: The patient is a 75-year-old female who has been followed in the pain clinic. She suffers from cervical radiculopathy. Epidural steroid injections in the past have proven beneficial. She continues to have pain in her neck with pain that radiates down into her right arm and into the forearm area. She notes that her pain worsened over the past week. She has returned today with the hopes of undergoing a cervical epidural steroid injection to help decrease her pain. Pain is about 50% improved with her medications. She notes that activities, cold temperatures, bending and other activities of daily living exacerbate her discomfort. ALLERGIES: CODEINE CAUSES NAUSEA AND VOMITING, AZITHROMYCIN, CETACAINE, ZOLOFT, TETRACAINE, SULFA. CURRENT MEDICATIONS: Xanax 0.5 mg b.i.d., Lipitor 40 mg, Coreg 3.125 mg b.i.d., Estrace 1 mg, Lasix 20 mg, gabapentin 100 mg b.i.d., lisinopril 20 mg, potassium 10 mEq. PAIN CLINIC ASSESSMENT AND PQRS: 1. The patient is not being treated for osteoarthritis or rheumatoid arthritis. 2. Height 4 feet 10 inches, weight 108 pounds, BMI is 23. 3. Vital signs: Blood pressure 150/78, heart rate 68, respiratory rate 16, room air saturation 98%, temperature is 98.2. 4. Pain intensity 04/13. 5. Fall history: The patient has not fallen in the last 3 months. 6. Blood thinner. The patient is not on a blood thinning medication. 7. Hypertension. The patient is being treated for hypertension. 8. Opioids greater than 6 weeks. The patient is not being treated with opioids. 9. Risk assessment tool, low for opioid use. 10. Functional assessment tool . 11. Recreational drug use. The patient denies. 12. Tobacco: [place] [address] PAIN MANAGEMENT CONSULTATION Name: EUGENIO TOVAR Room: [facility]#: [id number] Admission: 06/21/20 Attend Phys: Lauro Smith MD Discharge: Date of : 45 Report #: [id number] 13. Alcohol. The patient denies use of alcoholic beverages. PHYSICAL EXAMINATION: GENERAL: The patient is a well-developed, well-nourished female. Appears younger than her stated age. The patient has Parkinson's disease with facial expressions consistent with lack of expression. NECK: Without adenopathy or JVD. The patient does complain of some pain in her neck with pain that radiates down into the right arm and forearm. HEART: Regular rate. LUNGS: Clear. ABDOMEN: Nontender. MUSCULOSKELETAL: Upper extremity muscle strength judged to be 5-/5 on the left and 4+ on the right with pain in the right shoulder and pain radiating down to the right forearm. The patient carries her arm in a guarded fashion. Slight movement in her hands consistent with 6 to 7 to Hz has found Parkinson's disease. Lower extremity muscle strength judged to be 5-/5 for the major muscle groups in the lower extremity. IMPRESSION: 1. Cervical radiculopathy with pain radiating down to the right arm with numbness, tingling and sensory changes. 2. History of congestive heart failure. 3. Essential tremors. 4. Asthma. 5. Diastolic dysfunction. 6. Migraine headaches. 7. Coronary artery disease. 8. Hypertension. 9. Hyperlipidemia. 10. Fatty liver. 11. Gastroesophageal reflux. RECOMMENDATIONS: We discussed treatment options with the patient. Risks and benefits of a cervical epidural steroid injection were again reviewed. They include but are not limited to infection, worsening of pain, no improvement in pain, nerve damage, bleeding, headache and the patient elects to proceed. We discussed the problems with the COVID pandemic. We explained to the patient could have more problems should she become infected with COVID because of the lowering of immunity provided with steroid injections. The patient is aware and elects to proceed. PROCEDURE NOTE: The patient was taken to the procedure area. She was then assisted in getting on the examination table. Her back was sterilely prepped with a Betadine solution. A 0.25% bupivacaine was infiltrated using a 25-gauge needle at the C7-T1 interspace. A 17-gauge Tuohy with loss of resistance technique was used to gain access to the epidural space. There was no CSF, [place] [address] PAIN MANAGEMENT CONSULTATION Name: EUGENIO TOVAR Room: [facility] Jimmy.#: [id number] Admission: 06/21/20 Attend Phys: Lauro Smith MD Discharge: Date of : 45 Report #: [id number] or paresthesia. A total of 120 mg triamcinolone was injected. The patient tolerated the procedure well. A total of approximately 15 seconds fluoroscopy time was used. The patient remained in the pain clinic for an appropriate amount of time. She will follow up in the future as needed. We would like to thank you for letting us participate in her care. She will call us if she has any concerns. <ELECTRONICALLY SIGNED> By: Lauro Smith MD 07/03/20 1331 1729 0557N. Srinivasa Smith MD /nt
== END | disposition home or self-care (01) ==
LOC: M.PC 08:07
PROVIDERS: ATTEND Anesthesiology Pain Medicine
DX: M54.2 Cervicalgia (principal); M54.12 Radiculopathy, cervical region; I11.0 Hypertensive heart disease with heart failure; I50.9 Heart failure, unspecified; G43.909 Migraine, unspecified, not intractable, without status migrainosus; I25.10 Atherosclerotic heart disease of native coronary artery without angina pectoris; E78.5 Hyperlipidemia, unspecified; K21.9 Gastro-esophageal reflux disease without esophagitis; J45.909 Unspecified asthma, uncomplicated; Z79.899 Other long term (current) drug therapy; Z88.8 Allergy status to other drugs, medicaments and biological substances; Z88.5 Allergy status to narcotic agent; Z88.2 Allergy status to sulfonamides; Z98.890 Other specified postprocedural states

== ENCOUNTER 2020-08-07 09:51 | Emergency (ER) | payer MEDICARE, MEDICAID ==
[~2020-08-07] VITALS: Ht 147.3 cm; Wt 49.9 kg
[2020-08-07 10:34] LABS: URINE BILIRUBIN NEGATIVE (Negative); URINE BLOOD NEGATIVE (Negative); URINE CLARITY CLEAR; URINE COLOR YELLOW; URINE GLUCOSE-RANDOM NEGATIVE (Negative); URINE KETONES NEGATIVE (Negative); URINE LEUKOCYTES-REFLEX NEGATIVE (Negative); URINE NITRITE-REFLEX NEGATIVE (Negative); URINE PROTEIN NEGATIVE (Negative); URINE UROBILINOGEN 0.2 E.U./dl (0.2-1.0)
[2020-08-07 11:25] LABS: ABSOLUTE BASOPHILS 0.1 thou/uL (0.0-0.2); ABSOLUTE LYMPHOCYTES 2.4 thou/uL (0.8-5.3); ABSOLUTE MONOCYTES 0.8 thou/uL (0.0-1.2); ABSOLUTE NEUTROPHILS 6.1 thou/uL (1.6-8.1); BASOPHILS 0.6 %; EOSINOPHILS 0.2 %; HEMATOCRIT 42.6 % (37.0-47.0); HEMOGLOBIN 14.5 gm/dL (12.0-15.0); MCHC 34.1 g/dL (28.0-37.0); MCV 99.8 fL (80.0-100.0); MPV 7.5 fl. (7.2-11.1); NUCLEATED RBCS 0 /100WBC; PLATELET COUNT* 271 thou/uL (150-400); POLYS 65.2 %; RBC 4.27 mil/uL (4.20-5.00); RDW-CV 12.6 % (10.5-14.5); WBC 9.3 thou/uL (4.0-11.0)
[2020-08-07 11:35] LABS: CALCIUM 9.3 mg/dL (8.5-10.1); CREATININE 0.7 mg/dL (0.6-1.3); POTASSIUM 3.9 mmol/L (3.5-5.1)
[2020-08-07 11:39] LABS: ALBUMIN 4.3 g/dL (3.4-5.0); TOTAL BILIRUBIN 0.6 mg/dL (<0.1-1.0); TOTAL PROTEIN 7.9 g/dL (6.4-8.2)
[2020-08-07] MEDS ORDERED: PYRIDIUM100 M1 PO (14:11)
[2020-08-07] MEDS ORDERED: BENTYL 20 MG TA20 M1 PO (14:12)
[2020-08-07 14:37] VITALS: BP 178/84
== END 2020-08-07 14:38 | disposition home or self-care (01) ==
LOC: M.ERS 09:51
PROVIDERS: Nurse Practitioner Family
DX: R35.0 Frequency of micturition (principal); N28.1 Cyst of kidney, acquired; J45.909 Unspecified asthma, uncomplicated; I10 Essential (primary) hypertension; E78.5 Hyperlipidemia, unspecified; K21.9 Gastro-esophageal reflux disease without esophagitis; Z88.5 Allergy status to narcotic agent; Z88.1 Allergy status to other antibiotic agents; Z88.2 Allergy status to sulfonamides; Z88.8 Allergy status to other drugs, medicaments and biological substances

== ENCOUNTER 2021-05-01 18:35 | Emergency (ER) | payer MEDICARE, MEDICAID ==
[~2021-05-01] VITALS: Ht 149.9 cm; Wt 68.0 kg
[~2021-05-01 18:35] MED LIST changes: +BENTYL 20 MG TA20 M1 PO; +PYRIDIUM100 M1 PO
[2021-05-01] MEDS ORDERED: HYDROCODON-ACE1 EAC7 PO (18:50)
[2021-05-01] MEDS ORDERED: CENTANY30 GM TOP (18:53)
[2021-05-01 19:12] VITALS: BP 197/111
== END 2021-05-01 19:13 | disposition home or self-care (01) ==
LOC: M.ERS 18:35
DX: T23.132A Burn of first degree of multiple left fingers (nail), not including thumb, initial encounter (principal); T23.102A Burn of first degree of left hand, unspecified site, initial encounter; J45.909 Unspecified asthma, uncomplicated; E11.9 Type 2 diabetes mellitus without complications; I10 Essential (primary) hypertension; K21.9 Gastro-esophageal reflux disease without esophagitis; Z88.1 Allergy status to other antibiotic agents; Z88.2 Allergy status to sulfonamides; Z88.5 Allergy status to narcotic agent; Z79.899 Other long term (current) drug therapy; X19.XXXA Contact with other heat and hot substances, initial encounter; Y93.89 Activity, other specified; Y92.89 Other specified places as the place of occurrence of the external cause; Y99.9 Unspecified external cause status

== ENCOUNTER 2021-07-12 09:44 | Emergency (ER) | payer MEDICARE, MEDICAID ==
[~2021-07-12] VITALS: Ht 147.3 cm; Wt 45.4 kg
[~2021-07-12 09:44] MED LIST changes: +CENTANY30 GM TOP
[2021-07-12 10:33] LABS: ABSOLUTE LYMPHOCYTES 1.4 thou/uL (0.8-5.3); ABSOLUTE MONOCYTES 0.6 thou/uL (0.0-1.2); ABSOLUTE NEUTROPHILS 6.9 thou/uL (1.6-8.1); BASOPHILS 0.5 %; EOSINOPHILS 0.4 %; HEMATOCRIT 37.1 % (37.0-47.0); HEMOGLOBIN 12.6 gm/dL (12.0-15.0); LYMPHOCYTES 15.9 %; MCH 31.8 pg (26.0-34.0); MCV 93.3 fL (80.0-100.0); MONOCYTES 7.1 %; MPV 7.8 fl. (7.2-11.1); NUCLEATED RBCS 0 /100WBC; PLATELET COUNT* 278 thou/uL (150-400); POLYS 76.1 %; RBC 3.97 mil/uL (4.20-5.00); RDW-CV 13.2 % (10.5-14.5); WBC 9.1 thou/uL (4.0-11.0)
[2021-07-12 10:39] LABS: CALCIUM 8.7 mg/dL (8.5-10.1); CREATININE 0.7 mg/dL (0.6-1.3); POTASSIUM 4.3 mmol/L (3.5-5.1)
[2021-07-12 10:49] LABS: ALBUMIN 3.9 g/dL (3.4-5.0); TOTAL BILIRUBIN 0.4 mg/dL (<0.1-1.0); TOTAL PROTEIN 7.8 g/dL (6.4-8.2)
[2021-07-12 11:03] LABS: URINE BILIRUBIN NEGATIVE (Negative); URINE BLOOD 3+ (Negative); URINE CLARITY CLEAR; URINE COLOR YELLOW; URINE GLUCOSE-RANDOM NEGATIVE (Negative); URINE KETONES NEGATIVE (Negative); URINE LEUKOCYTES-REFLEX TRACE (Negative); URINE NITRITE-REFLEX NEGATIVE (Negative); URINE PROTEIN 2+ (Negative); URINE UROBILINOGEN 0.2 E.U./dl (0.2-1.0)
[2021-07-12 11:05] LABS: SQUAMOUS 0-3 Few /LPF (0-3)
[2021-07-12 11:06] LABS: BACTERIA-REFLEX 1-9 Few /HPF (None Seen); CASTS None Seen /LPF (None Seen); CRYSTALS None Seen /LPF (None Seen); MUCUS None Seen strn/LPF (None Seen); RENAL EPITHELIAL CELLS 4-10 Moderate /LPF (None Seen); URINE RBC >20 Many /HPF (0-2); URINE WBC-REFLEX 0-5 Rare /HPF (0-5)
[2021-07-12] MEDS ORDERED: CEPHALEXIN500 MG PO (13:11)
[2021-07-12 13:15] VITALS: BP 165/72
== END 2021-07-12 13:15 | disposition home or self-care (01) ==
LOC: M.ERS 09:44
PROVIDERS: Physician Assistant
DX: N30.01 Acute cystitis with hematuria (principal)

== ENCOUNTER 2021-09-17 05:32 | Emergency (ER) | payer MEDICARE, MEDICAID ==
[~2021-09-17] VITALS: Ht 147.3 cm; Wt 45.4 kg
[~2021-09-17 05:32] MED LIST changes: +CEPHALEXIN500 MG PO
[2021-09-17 06:39] LABS: ABSOLUTE LYMPHOCYTES 1.5 thou/uL (0.8-5.3); ABSOLUTE MONOCYTES 0.5 thou/uL (0.0-1.2); ABSOLUTE NEUTROPHILS 3.1 thou/uL (1.6-8.1); BASOPHILS 0.4 %; EOSINOPHILS 0.9 %; HEMATOCRIT 37.7 % (37.0-47.0); HEMOGLOBIN 12.5 gm/dL (12.0-15.0); LYMPHOCYTES 29.7 %; MCHC 33.2 g/dL (28.0-37.0); MCV 93.5 fL (80.0-100.0); MONOCYTES 9.9 %; NUCLEATED RBCS 0 /100WBC; PLATELET COUNT* 240 thou/uL (150-400); POLYS 59.1 %; RBC 4.03 mil/uL (4.20-5.00); RDW-CV 14.1 % (10.5-14.5); WBC 5.2 thou/uL (4.0-11.0)
[2021-09-17 06:41] LABS: BE 0.5 mmol/L (-2 to +3); PCO2 40.5 mmHg (35.0-45.0); PO2 85.4 mmHg (75.0-100.0)
[2021-09-17 06:44] LABS: PROTIME 9.9 Seconds (9.20-11.50)
[2021-09-17 07:10] LABS: CALCIUM 8.9 mg/dL (8.5-10.1); CREATININE 0.6 mg/dL (0.6-1.3); POTASSIUM 3.6 mmol/L (3.5-5.1)
[2021-09-17 07:15] LABS: ALBUMIN 3.6 g/dL (3.4-5.0); MAGNESIUM 2.4 mg/dL (1.8-2.4); TOTAL BILIRUBIN 0.4 mg/dL (<0.1-1.0); TOTAL PROTEIN 7.5 g/dL (6.4-8.2)
[2021-09-17 07:44] LABS: URINE BILIRUBIN NEGATIVE (Negative); URINE BLOOD NEGATIVE (Negative); URINE CLARITY CLEAR; URINE COLOR YELLOW; URINE GLUCOSE-RANDOM NEGATIVE (Negative); URINE KETONES NEGATIVE (Negative); URINE LEUKOCYTES-REFLEX NEGATIVE (Negative); URINE NITRITE-REFLEX NEGATIVE (Negative); URINE PROTEIN NEGATIVE (Negative); URINE SPECIFIC GRAVITY 1.015 (1.005-1.030); URINE UROBILINOGEN 0.2 E.U./dl (0.2-1.0)
[2021-09-17 09:57] VITALS: BP 166/71
--- NOTE | 2021-09-18 13:42 | EKG ---
[place] [address] ELECTROCARDIOGRAM REPORT Name: EUGENIO TOVAR Room: [facility]#: [id number] Admission: 09/17/21 Attend Phys: Discharge: 09/17/21 Date of : 45 Date of Service: 09/17/21 0547 Report #: [id number] THIS REPORT FOR: //name// [facility] ED Test Date: 2021-09-17 Test Time: 05:47:18 Pat Name: EUGENIO TOVAR Department: Room: Gender: [employer]asing [employer]ship: : 1945 Requested By: Davina Adams Order Number: [id number] Reading MD: Prabhakar Durand Measurements Intervals [place] Rate: 79 P: [place]: QRS: 69 QRSD: 86 T: 168 QT: 420 QTc: 482 Interpretive Statements Probable sinus rhythm with marked baseline artifact Probable LVH with secondary repol abnrm Borderline prolonged QT interval Compared to ECG 03/29/2020 23:46:12 No significant interval change Electronically Signed On 09-18-2021 13:42:18 [employer]NER by Prabhakar Durand [email or web address] <ELECTRONICALLY SIGNED> By: Prabhakar Durand MD, [facility] 09/18/21 1342 0547 0547 Prabhakar Durand MD, [facility] /EPI
== END 2021-09-17 09:58 | disposition home or self-care (01) ==
LOC: M.ERS 05:32
PROVIDERS: Personal Emergency Response Attendant
DX: R53.1 Weakness (principal); R29.6 Repeated falls; J45.909 Unspecified asthma, uncomplicated; I10 Essential (primary) hypertension; K21.9 Gastro-esophageal reflux disease without esophagitis; Z88.1 Allergy status to other antibiotic agents; Z88.2 Allergy status to sulfonamides; Z88.8 Allergy status to other drugs, medicaments and biological substances; Z79.899 Other long term (current) drug therapy

== ENCOUNTER 2021-11-14 14:14 | Inpatient (IN) | payer MEDICARE, MEDICAID ==
[~2021-11-14] VITALS: Ht 147.3 cm; Wt 43.5 kg
--- NOTE | ~2021-11-14 | EMS ---
[address] [address] EMS Patient Care Report Name: EUGENIO TOVAR Room: [facility].#: [id number] Admission: 11/14/21 Attend Phys: Discharge: Date of : 45 Report #: [id number] THIS REPORT FOR: //name// Report Transmitted: 11/14/2021 15:49 EMS Care Summary [facility] [place] Incident [id number] @ 11/14/2021 13:18 Incident Location [address], [place] [address] Patient EUGENIO TOVAR Female, 76 Years 1945 Patient Address [address] [place] [address] Patient History Parkinson's Disease, Patient Allergies , Chief Complaint Altered Level of Consciousness Disposition Transported No Lights/Cisco Dispatch Reason Stroke/CVA Transported To [facility] Narrative [facility] DISPATCHED EMERGENT FOR REPORTS OF A 76 YEAR OLD FEMALE POSSIBLE CVA. [facility] RESPONDED EMERGENT WITH DUE REGARD. UPON ARRIVAL CONTACT IS MADE WITH PATIENTS FRIEND WHO STATES THAT HE ARRIVED AT THE RESIDENCE AND FOUND THE FEMALE MORE CONFUSED THEN NORMAL AND EXTREMELY WEAK. FRIEND IS UNSURE OF ANY OTHER MEDICAL HISTORY BESIDES "PARKINSONS AND DIFFICULTY SPEAKING." CONTACT MADE WITH PATIENT. UPON ENTRY INTO THE ROOM CONTACT IS MADE WITH [facility] CREW [address] [address] EMS Patient Care Report Name: EUGENIO TOVAR [id number] Admission: 11/14/21 Attend Phys: Discharge: Date of : 45 Report #: [id number] MEMBERS AND PATIENT WHO IS LAYING IN BED ON HER LEFT SIDE. PATIENT IS AWAKE AND TRACKING UPON CONTACT. PATIENT NOTED TO BE TREMULOUS WHICH IS NORMAL FOR HER ACCORDING TO HER FRIEND. PATIENT IS ABLE TO ANSWER YES AND NO QUESTIONS WITH EASE. PATIENT DENIES ANY CHEST PAIN, SOA, OR WEAKNESS. PATIENT STATES THAT SHE HAS A PRESSURE IN HER CHEST BUT NOT A PAIN. PATIENT VITALS OBTAINED AND IT WAS NOTED THAT THE PATIENT HAD A SUSTAINED HEART RATE OF 180. PATIENT WAS LIFTED ONTO THE COT WITH THE ASSISTANCE OF 2 STAFF MEMBERS. PATIENT SECURED ON COT WITH ALL SAFETY BELTS AND TRANSPORTED ON COT OUT TO THE BACK OF THE UNIT AND LIFTED INSIDE. ONCE SECURED INSIDE PATIENT TREATMENTS COMPLETED DOCUMENTED. 12 LEAD SHOWS SVT. MULTIPLE ATTEMPTS AT OBTAINING IV ACCESS WAS ESTABLISHED WITHOUT SUCCESS. IV WAS OBTAINED IN THE PATIENT LEFT HAND. ADENOSINE ADMINISTERED FOLLOWED BY FLUSH. CONTINUOUS PRINT OUT WAS COMPLETED DURING PROCESS. PATIENT WAS ABLE TO BE CONVERTED INTO A SINUS TACH BRIEFLY BEFORE CONVERTING BACK INTO SVT. PATIENT MAINTAINED A HEART RATE OF 160 FOR 2 MIN BEFORE CONVERTING BACK INTO A SINUS TACH AGAIN WITH A RATE OF 106. VITALS MONITORED THROUGHOUT TRANSPORT PATIENT REMAINED STABLE WITH NO ISSUES TO BE NOTED. 12 LEAD EKG TRANSMITTED TO [facility]. PHYSICAL ASSESSMENT COMPLETED DOCUMENTED. RADIO REPORT GIVEN TO [facility] LIAISON ENGINEER. UPON ARRIVAL TO [facility] PATIENT TRANSPORTED OUT OF THE BACK OF THE UNIT AND INTO THE FACILITY. PATIENT TAKEN INTO ROOM 19. REPORT AND EKG STRIPS GIVEN TO NURSING STAFF AND ED DOCTOR. PATIENT TRANSFERRED OVER TO BED FROM [facility] WITH THE ASSISTANCE OF 4 STAFF MEMBERS. SIGNATURES OBTAINED FROM NURSING STAFF DUE TO PATIENT CONDITION. PATIENT IS NOW IN THE CARE OF [facility]. [facility] 307 CLEAR. Initial Vitals @13:36SpO2: 98, @13:55SpO2: 95, @14:03SpO2: 96, @13:42 @13:54 @14:00 @14:02 @13:36P: 100,R: 18,BP: 120/86, @13:55P: 56,R: 18,BP: 134/104, @14:03P: 109,R: 18,BP: 146/114, @13:36GCS: 14, @13:55GCS: 14, @14:03GCS: 14, @13:35 @13:48Glucose: 125, Assessments @13:29MENTAL:SKIN:HEENT:LUNG SOUNDS:ABDOMEN:PELVIS//GI:EXTREMITIES:PULSE:NEURO: [place] [address] EMS Patient Care Report Name: EUGENIO TOVAR Room: [facility]#: [id number] Admission: 11/14/21 Attend Phys: Discharge: Date of : 45 Report #: [id number] Cardiac arrhythmia/dysrhythmia Procedures @14:00 Adenosine - 6.000 Milligrams (mg) - Intravenous (IV) Response: Improved @13:59 IV Therapy - cc () Site: Hand-Left Response: UnchangedSucceeded @13:59 IV Therapy - cc () Site: Hand-Left Response: UnchangedSucceeded @13:45 IV Therapy - cc () Site: Antecubital-Left Response: UnchangedFailed @13:45 IV Therapy - cc () Site: Antecubital-Left Response: UnchangedFailed @13:57 Response: UnchangedSucceeded @13:42 12-Lead ECG Response: UnchangedSucceeded @13:54 12-Lead ECG Response: UnchangedSucceeded @14:00 3-Lead ECG Response: UnchangedSucceeded @14:02 12-Lead ECG Response: UnchangedSucceeded Timeline 12:15,Call Received 13:17,Dispatch Notified 13:17,Psap Call 13:18,Dispatched 13:18,En Route 13:27,On Scene 13:29,At Patient 13:35,BP: / M,PULSE: ,RR: R,SPO2: Ox,ETCO2: ,BG: ,PAIN: ,GCS: , 13:36,BP: / M,PULSE: ,RR: R,SPO2: 98 Ox,ETCO2: ,BG: ,PAIN: ,GCS: , 13:36,BP: 120/86 M,PULSE: 100,RR: 18 R,SPO2: Ox,ETCO2: ,BG: ,PAIN: ,GCS: , 13:36,BP: / M,PULSE: ,RR: R,SPO2: Ox,ETCO2: ,BG: ,PAIN: ,GCS: 14, 13:42,12-Lead ECG,Response: UnchangedSucceeded, 13:42,BP: / M,PULSE: ,RR: R,SPO2: Ox,ETCO2: ,BG: ,PAIN: ,GCS: , 13:45,IV Therapy - cc Site: Antecubital-Left,Response: UnchangedFailed, 13:45,IV Therapy - cc Site: Antecubital-Left,Response: UnchangedFailed, 13:48,BP: / M,PULSE: ,RR: R,SPO2: Ox,ETCO2: ,B,PAIN: ,GCS: , 13:49,Depart Scene 13:54,12-Lead ECG,Response: UnchangedSucceeded, 13:54,BP: / M,PULSE: ,RR: R,SPO2: Ox,ETCO2: ,BG: ,PAIN: ,GCS: , 13:55,BP: / M,PULSE: ,RR: R,SPO2: 95 Ox,ETCO2: ,BG: ,PAIN: ,GCS: , 13:55,BP: 134/104 M,PULSE: 56,RR: 18 R,SPO2: Ox,ETCO2: ,BG: ,PAIN: ,GCS: , 13:55,BP: / M,PULSE: ,RR: R,SPO2: Ox,ETCO2: ,BG: ,PAIN: ,GCS: 14, 13:57,Response: UnchangedSucceeded, 13:59,IV Therapy - cc Site: Hand-Left,Response: UnchangedSucceeded, 13:59,IV Therapy - cc Site: Hand-Left,Response: UnchangedSucceeded, 14:00,Adenosine - 6.000 Milligrams (mg) - Intravenous (IV),Response: Improved 14:00,3-Lead ECG,Response: UnchangedSucceeded, 14:00,BP: / M,PULSE: ,RR: R,SPO2: Ox,ETCO2: ,BG: ,PAIN: ,GCS: , 14:02,12-Lead ECG,Response: UnchangedSucceeded, 14:02,BP: / M,PULSE: ,RR: R,SPO2: Ox,ETCO2: ,BG: ,PAIN: ,GCS: , [place] [address] EMS Patient Care Report Name: EUGENIO TOVAR [id number] Admission: 11/14/21 Attend Phys: Discharge: Date of : 45 Report #: [id number] 14:03,BP: / M,PULSE: ,RR: R,SPO2: 96 Ox,ETCO2: ,BG: ,PAIN: ,GCS: , 14:03,BP: 146/114 M,PULSE: 109,RR: 18 R,SPO2: Ox,ETCO2: ,BG: ,PAIN: ,GCS: , 14:03,BP: / M,PULSE: ,RR: R,SPO2: Ox,ETCO2: ,BG: ,PAIN: ,GCS: 14, 14:08,At Destination 14:29,Call Closed Disclaimer v1.1 Copyright 2021 [employer] This EMS Care Summary contains data elements from the applicable legal record (which may be displayed differently). It is designed to provide pertinent information for the following purposes: continuity of care, clinical quality, and state data reporting. The complete legal record is available to ED staff and administrators of the receiving hospital in [facility] Patient Tracker. All data is provided "as is."
[2021-11-14 14:15] VITALS: BP 130/82
[2021-11-14 14:53] LABS: ABSOLUTE LYMPHOCYTES 1.3 thou/uL (0.8-5.3); ABSOLUTE MONOCYTES 0.5 thou/uL (0.0-1.2); ABSOLUTE NEUTROPHILS 5.5 thou/uL (1.6-8.1); BASOPHILS 0.4 %; EOSINOPHILS 0.4 %; HEMATOCRIT 40.1 % (37.0-47.0); HEMOGLOBIN 13.5 gm/dL (12.0-15.0); LYMPHOCYTES 17.3 %; MCH 31.8 pg (26.0-34.0); MCHC 33.6 g/dL (28.0-37.0); MCV 94.8 fL (80.0-100.0); MONOCYTES 6.9 %; MPV 8.5 fl. (7.2-11.1); NUCLEATED RBCS 0 /100WBC; PLATELET COUNT* 264 thou/uL (150-400); RBC 4.23 mil/uL (4.20-5.00); RDW-CV 13.2 % (10.5-14.5); WBC 7.4 thou/uL (4.0-11.0)
[2021-11-14 14:57] LABS: CALCIUM 8.7 mg/dL (8.5-10.1); CREATININE 0.8 mg/dL (0.6-1.3); POTASSIUM 4.2 mmol/L (3.5-5.1)
[2021-11-14 15:08] LABS: ALBUMIN 3.7 g/dL (3.4-5.0); MAGNESIUM 2.2 mg/dL (1.8-2.4); TOTAL BILIRUBIN 0.4 mg/dL (<0.1-1.0); TOTAL PROTEIN 7.6 g/dL (6.4-8.2)
[2021-11-14 17:00] VITALS: BP 142/109
[2021-11-14 19:45] VITALS: BP 149/96
[2021-11-14 20:10] VITALS: BP 140/63
[2021-11-14 21:08] LABS: CHOLESTEROL 136 mg/dL (<200); HDL CHOLESTEROL 64 mg/dL (>40); LDL CHOLESTEROL 60 mg/dL (<100); SERUM ASSESSMENT CLEAR; TC:HDL 2.1 Ratio (Not establshd); TRIGLYCERIDE 61 mg/dL (<150); VLDL 12 mg/dL (<40)
[2021-11-14 21:08] LABS: APTT 30.2 Seconds (25.0-31.3); PROTIME 9.9 Seconds (9.20-11.50)
[2021-11-14 22:38] LABS: APTT 29.1 Seconds (25.0-31.3); PROTIME 10.1 Seconds (9.20-11.50)
[2021-11-15 00:35] VITALS: BP 132/65
[2021-11-15 04:37] VITALS: BP 103/57
[2021-11-15 05:37] LABS: CALCIUM 8.3 mg/dL (8.5-10.1); CREATININE 0.8 mg/dL (0.6-1.3); POTASSIUM 3.8 mmol/L (3.5-5.1); TOTAL BILIRUBIN 0.3 mg/dL (<0.1-1.0); TOTAL PROTEIN 6.3 g/dL (6.4-8.2)
[2021-11-15 07:48] LABS: CREATININE 0.7 mg/dL (0.6-1.3); POTASSIUM 3.9 mmol/L (3.5-5.1)
[2021-11-15 09:00] VITALS: BP 129/68
--- NOTE | 2021-11-15 11:21 | EKG ---
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1945 Requested By: Yvon Williamson Order Number: [id number] MD: Prabhakar Durand Measurements Intervals [place] Rate: 106 P: CO: QRS: 56 QRSD: 68 T: 140 QT: 318 QTc: 423 Interpretive Statements Probable mild sinus tachycardia with marked baseline artifact Probable LVH with secondary repol abnrm Compared to ECG 09/17/2021 05:47:18 Heart rate has increased Electronically Signed On 11-15-2021 11:21:19 HOME DECORATOR by Prabhakar Durand [email or web address] <ELECTRONICALLY SIGNED> By: Prabhakar Durand MD, [facility] 11/15/21 1121 1415 1415 Prabhakar Durand MD, [facility] /EPI
--- NOTE | 2021-11-15 11:38 | EKG ---
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1945 Requested By: Rajani Vickers Order Number: [id number] Reading MD: Prabhakar Durand Measurements Intervals [place] Rate: 75 P: 43 RI: 52 QRS: 54 QRSD: 85 T: 226 QT: 413 QTc: 462 Interpretive Statements Sinus rhythm Consider right atrial enlargement Probable LVH with secondary repol abnrm Artifact in lead(s) II,III,aVR,aVL,aVF,V1,V2 Compared to ECG 11/14/2021 14:15:40 Sinus rate has slowed Electronically Signed On 11-15-2021 11:38:07 STATISTICAL TYPIST by Prabhakar Durand [email or web address] <ELECTRONICALLY SIGNED> By: Prabhakar Durand MD, [facility] 11/15/21 1138 1 1 Prabhakar Durand MD, [facility] /EPI
[2021-11-15 12:00] VITALS: BP 119/52; BP 94/46
--- NOTE | 2021-11-15 15:36 | 2DMMODE ---
[place] [address] 2 D/M-MODE ECHOCARDIOGRAM Name: EUGENIO TOVAR RJ Room: [address] IN [facility]#: [id number] Admission: 11/14/21 Attend Phys: Yrn Akbar Discharge: Date of : 45 Date of Service: 11/15/21 1535 Report #: [id number] THIS REPORT FOR: cc: Quita Duran MD, Ghazal A. MD Holkins,Prabhakar Lemon MD [facility] ~ APPROVED REPORT Study performed: 11/15/2021 11:01:15 EXAM: Comprehensive 2D, Doppler, and color-flow Echocardiogram Patient Location: In-Patient Room #: [facility] Status: routine BSA: 1.38 HR: 68 bpm BP: 103/57 mmHg Rhythm: NSR Other Information Study Quality: Good Indications SVT 2D Dimensions IVSd: 14.77 (7-11mm) LVOT Diam: 18.57 (18-24mm) LVDd: 29.09 mm PWd: 13.37 (7-11mm) Ascending Ao: 27.28 (22-36mm) LVDs: 15.77 (25-40mm) Aortic Root: 27.48 mm Volumes Left Atrial Volume (Systole) LA ESV Index: 34.80 mL/m2 Aortic Valve AoV Peak Imtiaz.: 1.48 m/s AO Peak Gr.: 8.75 mmHg LVOT Max P.37 mmHg AO Mean Gr.: 4.75 mmHg LVOT Mean P.74 mmHg LVOT Max V: 1.26 m/s AO V2 VTI: 23.58 cm LVOT Mean V: 0.74 m/s CM (VTI): 2.70 cm2 LVOT V1 VTI: 23.51 [place] [address] 2 D/M-MODE ECHOCARDIOGRAM Name: EUGENIO TOVAR Room: [address] IN ..#: [id number] Admission: 11/14/21 Attend Phys: Yrn Akbar Discharge: Date of : 45 Date of Service: 11/15/21 1535 Report #: [id number] Mitral Valve MV Mean Gr.: 1.48 mmHg E/A Ratio: 0.68 MV Decel. Time: 314.40 ms MV E Max Imtiaz.: 0.71 m/s MV PHT: 91.18 ms MVA (PHT): 2.41 cm2 TDI E/Lateral E': 14.20 E/Medial E': 17.75 Medial E' Imtiaz.: 0.04 m/s Lateral E' Imtiaz.: 0.05 m/s Pulmonary Valve PV Peak Imtiaz.: 0.75 m/s PV Peak Gr.: 2.22 mmHg Tricuspid Valve RAP Estimate: 5.00 mmHg TR Peak Gr.: 19.36 mmHg RVSP: 24.00 mmHg PA Pressure: 24.00 mmHg Left Ventricle The left ventricle is normal size. There is normal LV segmental wall motion. Moderate concentric left ventricular hypertrophy. Left ventricular systolic function is normal. The left ventricular ejection fraction is within the normal range. LVEF is 65-70%. Right Ventricle The right ventricle is normal size. The right ventricular systolic function is normal. Atria The left atrium size is normal. The right atrium size is normal. Aortic Valve Mild aortic valve sclerosis. Trace aortic regurgitation. There is no aortic valvular stenosis. Mitral Valve Moderate mitral annular calcification. Trace mitral regurgitation. No evidence of mitral valve stenosis. Tricuspid Valve The tricuspid valve is normal in structure. Trace tricuspid regurgitation[place] [address] 2 D/M-MODE ECHOCARDIOGRAM Name: EUGENIO TOVAR Room: [address]#: [id number] Admission: 11/14/21 Attend Phys: Yrn Akbar Discharge: Date of : 45 Date of Service: 11/15/21 1535 Report #: [id number] Pulmonic Valve The pulmonary valve is normal in structure. There is no pulmonic valvular regurgitation. Great Vessels The aortic root is normal in size. IVC is normal in size and collapses >50% with inspiration. Pericardium There is no pericardial effusion. <Conclusion> The left ventricle is normal size. Moderate concentric left ventricular hypertrophy. Left ventricular systolic function is normal. The left ventricular ejection fraction is within the normal range. LVEF is 65-70%. The right ventricle is normal size. The left atrium size is normal. Mild aortic valve sclerosis. Trace aortic regurgitation. There is no aortic valvular stenosis. Moderate mitral annular calcification. Trace mitral regurgitation. No evidence of mitral valve stenosis. The tricuspid valve is normal in structure. Trace tricuspid regurgitation. No pulmonary hypertension. IVC is normal in size and collapses >50% with inspiration. There is no pericardial effusion. There is normal LV segmental wall motion. <ELECTRONICALLY SIGNED> By: Prabhakar Durand MD, FACC 11/15/21 [phone] Prabhakar Durand MD, FACC /INF
[2021-11-15 17:13] VITALS: BP 119/52
[2021-11-15] MEDS ORDERED: NITROGLYCERIN0.4 MG SUBLING (17:30)
[2021-11-15] MEDS ORDERED: COREG6.25 MG PO (17:33)
[2021-11-15] MEDS ORDERED: BAYER CHEWABLE81 MG PO (17:34)
[2021-11-15 18:30] VITALS: BP 119/52
[2021-11-17 07:08] LABS: GLYCOHEMOGLOBIN (HGB A1C) 5.8 % (4.8-5.6)
== END 2021-11-15 19:15 | disposition home or self-care (01) | DRG 280 ==
LOC: M.ERS 14:14 → M.TBA-ER 16:53 → M.2W 16:53
PROVIDERS: Emergency Medicine Emergency Medical Services; Registered Nurse; ADMIT Internal Medicine; ATTEND Internal Medicine
DX: I21.4 Non-ST elevation (NSTEMI) myocardial infarction (principal); G93.41 Metabolic encephalopathy; I47.1 Supraventricular tachycardia; I50.32 Chronic diastolic (congestive) heart failure; Z20.822 Contact with and (suspected) exposure to COVID-19; J45.909 Unspecified asthma, uncomplicated; E78.5 Hyperlipidemia, unspecified; F41.9 Anxiety disorder, unspecified; G47.00 Insomnia, unspecified; K21.9 Gastro-esophageal reflux disease without esophagitis; I25.10 Atherosclerotic heart disease of native coronary artery without angina pectoris; G20 Parkinson's disease; I11.0 Hypertensive heart disease with heart failure; G25.0 Essential tremor; Z79.82 Long term (current) use of aspirin; Z88.1 Allergy status to other antibiotic agents; Z88.2 Allergy status to sulfonamides; Z88.8 Allergy status to other drugs, medicaments and biological substances; Z79.899 Other long term (current) drug therapy

== ENCOUNTER → 2021-11-19 | Outpatient (CLI) | payer MEDICARE, MEDICAID ==
[~2021-11-19] MED LIST changes: +BAYER CHEWABLE81 MG PO; +COREG6.25 MG PO; +NITROGLYCERIN0.4 MG SUBLING
[2021-11-19 09:46] LABS: HEMATOCRIT 38.4 % (37.0-47.0); HEMOGLOBIN 13.1 gm/dL (12.0-15.0); MCH 32.4 pg (26.0-34.0); MCV 95.3 fL (80.0-100.0); RBC 4.03 mil/uL (4.20-5.00); RDW-CV 12.7 % (10.5-14.5); WBC 7.9 thou/uL (4.0-11.0)
[2021-11-19 10:00] LABS: ALBUMIN 3.5 g/dL (3.4-5.0); CALCIUM 8.9 mg/dL (8.5-10.1); CREATININE 0.7 mg/dL (0.6-1.3); POTASSIUM 4.5 mmol/L (3.5-5.1); TOTAL BILIRUBIN 0.6 mg/dL (<0.1-1.0); TOTAL PROTEIN 7.4 g/dL (6.4-8.2)
== END ==
LOC: M.LAB 09:08
PROVIDERS: ATTEND Psychiatry & Neurology Neuromuscular Medicine
DX: G91.2 (Idiopathic) normal pressure hydrocephalus (principal); G20 Parkinson's disease; I50.33 Acute on chronic diastolic (congestive) heart failure; R53.1 Weakness; R25.1 Tremor, unspecified; R26.9 Unspecified abnormalities of gait and mobility

== ENCOUNTER 2021-11-21 12:02 | Observation (INO) | payer MEDICARE, MEDICAID ==
[~2021-11-21] VITALS: Ht 139.7 cm; Wt 46.7 kg
[2021-11-21 12:14] VITALS: BP 145/68
[2021-11-21 12:31] LABS: ABSOLUTE EOSINOPHILS 0.1 thou/uL (0.0-0.7); ABSOLUTE LYMPHOCYTES 1.4 thou/uL (0.8-5.3); ABSOLUTE MONOCYTES 0.6 thou/uL (0.0-1.2); ABSOLUTE NEUTROPHILS 7.3 thou/uL (1.6-8.1); BASOPHILS 0.5 %; EOSINOPHILS 0.6 %; HEMATOCRIT 36.3 % (37.0-47.0); HEMOGLOBIN 12.2 gm/dL (12.0-15.0); LYMPHOCYTES 14.8 %; MCH 32.1 pg (26.0-34.0); MCHC 33.6 g/dL (28.0-37.0); MCV 95.5 fL (80.0-100.0); NUCLEATED RBCS 0 /100WBC; PLATELET COUNT* 254 thou/uL (150-400); POLYS 78.1 %; RDW-CV 13.3 % (10.5-14.5); WBC 9.3 thou/uL (4.0-11.0)
[2021-11-21 12:59] LABS: CALCIUM 8.5 mg/dL (8.5-10.1); CREATININE 0.7 mg/dL (0.6-1.3); POTASSIUM 4.2 mmol/L (3.5-5.1)
--- NOTE | 2021-11-21 13:04 | EKG ---
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1945 Requested By: Yvon Williamson Order Number: [id number] MD: Dino Weber Measurements Intervals [place] Rate: 88 P: 38 TN: 61 QRS: 54 QRSD: 71 T: 173 QT: 361 QTc: 437 Interpretive Statements Sinus rhythm Short TN interval artifact Probable LVH with secondary repol abnrm Baseline wander in lead(s) aVL,V2 Compared to ECG 11/15/2021 09:12:21 no change Electronically Signed On 11-21-2021 13:04:26 MATCH MARKER by Dino Weber [email or web address] <ELECTRONICALLY SIGNED> By: Dino Weber MD, FACC 11/21/21 1304 1211 1211 Dino Weber MD, [facility] /EPI
[2021-11-21 13:09] LABS: ALBUMIN 3.3 g/dL (3.4-5.0); MAGNESIUM 2.2 mg/dL (1.8-2.4); TOTAL BILIRUBIN 0.3 mg/dL (<0.1-1.0); TOTAL PROTEIN 7.1 g/dL (6.4-8.2)
[2021-11-21 14:46] LABS: APTT 25.2 Seconds (25.0-31.3); INR 0.9; PROTIME 9.5 Seconds (9.20-11.50)
[2021-11-21 16:46] VITALS: BP 118/66
[2021-11-21 17:00] VITALS: BP 136/57
[2021-11-21 20:00] VITALS: BP 120/60
[2021-11-22] VITALS (14 sets, daily range): BP systolic 98–164; BP diastolic 44–107
[2021-11-22 05:32] LABS: ABSOLUTE EOSINOPHILS 0.1 thou/uL (0.0-0.7); ABSOLUTE LYMPHOCYTES 2.5 thou/uL (0.8-5.3); ABSOLUTE MONOCYTES 0.5 thou/uL (0.0-1.2); ABSOLUTE NEUTROPHILS 4.3 thou/uL (1.6-8.1); BASOPHILS 0.5 %; EOSINOPHILS 0.7 %; HEMATOCRIT 34.2 % (37.0-47.0); HEMOGLOBIN 11.6 gm/dL (12.0-15.0); LYMPHOCYTES 33.3 %; MCH 32.3 pg (26.0-34.0); MCV 94.8 fL (80.0-100.0); MONOCYTES 7.2 %; MPV 8.6 fl. (7.2-11.1); NUCLEATED RBCS 0 /100WBC; PLATELET COUNT* 246 thou/uL (150-400); POLYS 58.3 %; RDW-CV 12.9 % (10.5-14.5); WBC 7.4 thou/uL (4.0-11.0)
[2021-11-22 05:47] LABS: ANION GAP 5 mmol/L (7-16); BUN 27 mg/dL (7-18); CALCIUM 8.7 mg/dL (8.5-10.1); CHLORIDE 105 mmol/L (98-107); CHOLESTEROL 138 mg/dL (<200); CO2 29 mmol/L (21-32); CREATININE 0.8 mg/dL (0.6-1.3); GLUCOSE 103 mg/dL (70-99); HDL CHOLESTEROL 53 mg/dL (>40); LDL CHOLESTEROL 65 mg/dL (<100); POTASSIUM 3.9 mmol/L (3.5-5.1); SODIUM 139 mmol/L (136-145); TC:HDL 2.6 Ratio (Not establshd); TRIGLYCERIDE 104 mg/dL (<150); VLDL 21 mg/dL (<40)
[2021-11-22 08:29] LABS: SERUM ASSESSMENT Clear
--- NOTE | 2021-11-22 16:45 | CON ---
[address] [address] CONSULTATION Name: EUGENIO TOVAR Room: [address] Manuel Alvarez#: [id number] Admission: 11/21/21 Attend Phys: Georges Brand MD Discharge: 11/22/21 Date of : 45 Report #: [id number] THIS REPORT FOR: cc: Quita Duran MD, Ghazal A. MD Liston, Michael J. MD [facility] ~ DATE OF CONSULTATION: 11/21/2021 CARDIOLOGY CONSULTATION INDICATION: Chest pain. HISTORY OF PRESENT ILLNESS: The patient is a 76-year-old Italian female with severe Parkinson's disease, who was seen last week with questionable SVT. In that setting, she had an elevation of her troponin suggestive of non-ST elevation myocardial infarction. An echocardiogram at that time suggested normal LV systolic function and medical management was recommended. The patient returns today with recurrent chest discomfort located in the right chest. The patient took 2 sublingual nitroglycerin at home with partial relief. The patient's Parkinson's makes history taking difficult. The pain apparently began at approximately 10:00 this morning. She presented to the Emergency Room at approximately 11:30. She is presently without pain. EKG shows sinus rhythm with significant Parkinson's artifact. Initial troponin was unremarkable. Troponin last week peaked at 11,016. By catheterization in 2015, she was noted to have moderate nonocclusive disease. PAST MEDICAL HISTORY: 1. Coronary artery disease. 2. Dyslipidemia. 3. Parkinson's disease. 4. GERD. 5. Insomnia. 6. Hypertension. 7. Fatty liver. ALLERGIES: AZITHROMYCIN, BENZOCAINE, CETACAINE, SULFA, TETRACAINE, SERTRALINE, CODEINE. HOME MEDICATIONS: Alprazolam 0.5 mg p.o. b.i.d., aspirin 81 mg p.o. daily, atorvastatin 40 mg at bedtime, carvedilol 6.25 mg b.i.d., Keflex 500 mg b.i.d., Bentyl 20 mg q.i.d. p.r.n., Estrace 1 mg half tablet daily, furosemide 20 mg daily, gabapentin 100 mg t.i.d., hydrocodone/acetaminophen 5/325 mg 1-2 tablets q. 6 hours p.r.n., lisinopril 20 mg daily, mupirocin ointment topically b.i.d., Nitrostat sublingual p.r.n., Pyridium 100 mg t.i.d., Effer-K [place] [address] CONSULTATION Name: TOVAREUGENIO DE LA ROSA Room: [address] Manuel Alvarez#: [id number] Admission: 11/21/21 Attend Phys: Georges Brand MD Discharge: 11/22/21 Date of : 45 Report #: [id number] REVIEW OF SYSTEMS: Unobtainable. PHYSICAL EXAMINATION: VITAL SIGNS: Blood pressure 145/68, pulse is in the 60s and regular. GENERAL: This is a pleasant female who does not appear to be in distress. She has flat facies/affect due to Parkinson's. HEENT: Head is normocephalic, atraumatic. Extraocular muscles are intact. NECK: Shows no jugular venous distention. CARDIAC: Reveals a regular rhythm without gallop or murmur. CHEST: Clear anteriorly. ABDOMEN: Reveals normal bowel sounds. Abdomen is soft, nontender. EXTREMITIES: Shows no edema. Peripheral pulses are 2+ and palpable. SKIN: Dry. DIAGNOSTIC DATA: A 12-lead EKG shows sinus rhythm without acute ST abnormality. There is Parkinson's artifact noted. LABORATORY DATA: Reviewed. Sodium 139, potassium 4.2, chloride 103, bicarbonate 29, BUN 22, creatinine 0.7, serum glucose 131. LFTs within normal limits. Initial high-sensitivity troponin 88. LDL cholesterol last week 60. Coags within normal limits. White blood cell count 9.3, hemoglobin 12.2, platelet count 254,000. Chest x-ray clear. IMPRESSION AND RECOMMENDATIONS: 1. Recurrent chest pain with partial relief with nitroglycerin suggestive of unstable angina. We will admit to hospital and place on heparin drip per Cardiology protocol. Plan cardiac catheterization in a.m. 2. Hypertension. Presently, adequately controlled. Continue home medications. 3. Dyslipidemia, at goal. Continue current statin agent. 4. Parkinson's disease. <ELECTRONICALLY SIGNED> By: Chidi Suarez MD, FACC 11/22/21 1645 1259 1846Chidi Suarez MD, FACC /nt
--- NOTE | 2021-11-25 16:18 | CARD ---
[address] [address] CARDIAC CATH REPORT Name: EUGENIO TOVAR Room: [address] Manuel Alvarez#: [id number] Admission: 11/21/21 Attend Phys: Georges Brand MD Discharge: 11/22/21 Date of : 45 Report #: [id number] THIS REPORT FOR: cc: Quita Duran MD, Ghazal A. MD Blick,Dino Branch MD [facility] ~ APPROVED REPORT Study performed: 11/22/2021 09:16:58 Patient Details Patient Status: In-Patient Room #: 218 The patient is a 76 year-old female Event Personnel Dr. Weber, Hank Morris RN, Melanie Russell RTR, María Daily RTR Procedures Performed Left heart cath with LV gram Indication Chest pain Risk Factors Dysplipidemia , Coronary Artery DiseaseHypertension Procedure Narrative The patient was brought electively to the Cardiac Catheterization Laboratory and was prepped and draped in a sterile manner. The right femoral was infiltrated with 2% Lidocaine subcutaneous anesthesia. IV conscious sedation was used throughout procedure with appropriate monitoring and was performed in the presence of a registered nurse who was an independent trained observer other than the physician performing the procedure. A 6Fr [place] sheath was inserted into the right femoral artery. Coronary angiography was performed using coronary diagnostic catheters. The right coronary system was accessed and visualized with a Diagnostic 6Fr JR4 catheter. The left coronary system was accessed and visualized with a Diagnostic 6Fr JL4 catheter. The left ventricle was accessed and visualized with a Diagnostic 6Fr Straight Pigtail catheter. Left ventricular/Aortic Valve gradient assessed via catheter pullback. Left ventriculogram was performed in GARCIA projection. Pre-demployment femoral angiogram was performed in GARCIA. Closure device was deployed with a 6 [place] [address] CARDIAC CATH REPORT Name: EUGENIO TOVRA [address]#: [id number] Admission: 11/21/21 Attend Phys: Georges Brand MD Discharge: 11/22/21 Date of : 45 Report #: [id number] The patient tolerated the procedure well and there were no complications associated with the procedure. There was no hematoma. Procedure was performed from the femoral artery rather than the radial artery since the patient had difficulty controlling her arms secondary to Parkinson's. Intraoperative Conscious Sedation Sedation start time: 1007 Case end Time: 1030 Fentanyl 25.0 mcg Versed 1.0 mg Fluoro Time: 1.6 minutes Dose: DAP 97227 cGycm2 228 mGy Contrast Type and Amount: Omnipaque 90ml Coronary Angiography The patient's coronary anatomy is right dominant. Diagnostic Cath Left Main 0% stenosis LAD 0% stenosis Diagonal 1 medium sized vessel with 80% ostial stenosis Circumflex 0% stenosis Right Coronary 50% ostial stenosis Left Ventriculography The left ventricular ejection fraction is estimated to be 60-65%. Left ventricular wall motion abnormalities are not present. There is no mitral insufficiency. Hemodynamics The aortic pressure is 143/74 mmHg with a mean of 103 mmHg. The left ventricular pressure is 156/11 mmHg with a mean of 29 mmHg. The left ventricular end diastolic pressure is 20 mmHg. There was no gradient across the aortic valve upon pullback. Pullback from the left ventricle to the aorta revealed no gradient across the aortic valve. Conclusion 1. minimal CAD with a 80% ostial stenosis of a medium sized first diagonal branch of the LAD. 2. 50% ostial stenosis of the RCA 3. LVEF 60-65% [place] [address] CARDIAC CATH REPORT Name: EUGENIO TOVAR Room: [address] Kim#: [id number] Admission: 11/21/21 Attend Phys: Georges Brand MD Discharge: 11/22/21 Date of : 45 Report #: [id number] Recommendations Aggressive Medical Therapy <ELECTRONICALLY SIGNED> By: Dino Weber MD, [facility] 11/25/21 1618 1618 1618Dabartolome Weber MD, FACC /INF
== END 2021-11-22 16:10 | disposition home health service (06) ==
LOC: M.ERS 12:02 → M.TBA-ER 14:18 → M.2W 14:18
PROVIDERS: Emergency Medicine Emergency Medical Services; ADMIT Internal Medicine; ATTEND Internal Medicine
DX: I25.10 Atherosclerotic heart disease of native coronary artery without angina pectoris (principal); Z20.822 Contact with and (suspected) exposure to COVID-19; I47.1 Supraventricular tachycardia; G20 Parkinson's disease; R25.1 Tremor, unspecified; F41.9 Anxiety disorder, unspecified; M48.00 Spinal stenosis, site unspecified; I11.0 Hypertensive heart disease with heart failure; I50.30 Unspecified diastolic (congestive) heart failure; K21.9 Gastro-esophageal reflux disease without esophagitis; Z79.82 Long term (current) use of aspirin; Z79.899 Other long term (current) drug therapy